=== PATIENT | male | born 1940 ===

== ENCOUNTER 2018-10-02 12:57 | Inpatient (IN) | payer MEDICARE ==
[2018-10-02 12:57] VITALS: BMI 25.4
--- NOTE | 2018-10-02 13:43 | C.PDOC ---
History Of Present Illness 78 year old male sent to ED by Dr. Carrasco for admission due to low magnesium level. Patient complains of abdominal discomfort and loosing weight. Dr. Carrasco sent him for a CT scan of the abdomen and found that he as a retro-peritoneal mass and a 5 cm AAA. Patient is to be re-evaluated here and seen by surgery. Patient denies fever, chills, nausea, vomiting, and diarrhea. Time Seen by Provider: 10/02/18 13:37 Chief Complaint (Nursing): Abnormal Labs History Per: Patient History/Exam Limitations: no limitations Current Symptoms Are (Timing): Still Present Past Medical History Reviewed: Historical Data, Nursing Documentation, Vital Signs Vital Signs: Last Vital Signs Temp 98.2 F 10/02/18 13:10 Pulse 69 10/02/18 13:10 Resp 16 10/02/18 13:10 BP 146/64 10/02/18 13:10 Pulse Ox 99 10/02/18 13:10 - Medical History PMH: Alzheimer's Disease, Cardia Arrhythmia, Diabetes, Fractures (HAND CASTED), Gastritis, HTN, Hypercholesterolemia Denies: Chronic Kidney Disease Surgical History: Denies: Pacemaker - [facility] Procedures CONTRAST AORTOGRAM (04/20/14) CORONAR ARTERIOGR-2 CATH (06/02/14) INJECT/INFUSE NEC (10/07/12) INSERTION OF ONE VASCULAR STENT (10/07/12) INSERTION OF TWO VASCULAR STENTS (06/02/14) INSRT OF DRUG-ELUTING CORON ARTERY STENTS(S) (06/02/14) INTRAVASCULAR IMAGING OF CORONARY VESSELS (10/07/12) INTRAVASCULAR PRESSURE MEASUREMENT OF CORONARY ARTERIES (06/02/14) LEFT HEART CARDIAC CATH (06/02/14) LT HEART ANGIOCARDIOGRAM (04/20/14) PERCUTANEOUS TRANSLUMINAL CORONARY ANGIOPLASTY [PTCA] (06/02/14) PROCEDURE ON SINGLE VESSEL (06/02/14) Family History: States: Unknown Family Hx - Social History Hx Tobacco Use: No Hx Alcohol Use: No Hx Substance Use: No - Immunization History Hx Tetanus Toxoid Vaccination: No Hx Influenza Vaccination: Yes Hx Pneumococcal Vaccination: No Review Of Systems Constitutional: Positive for: Weight loss. Negative for: Fever, Chills, Weakness Gastrointestinal: Positive for: Abdominal Pain. Negative for: Nausea, Vomiting, Diarrhea Neurological: Negative for: Weakness, Numbness, Dizziness Physical Exam - Physical Exam Appears: Non-toxic, No Acute Distress Skin: Normal Color, Warm, Dry Head: Atraumatic, Normacephalic Neck: Normal ROM, Supple Chest: Symmetrical, No Deformity Cardiovascular: Rhythm Regular, No Murmur Respiratory: No Accessory Muscle Use, No Rales, No Rhonchi, No Wheezing Gastrointestinal/Abdominal: Soft, No Tenderness Extremity: Capillary Refill (<2 seconds) Neurological/Psych: Oriented x3, Normal Speech, Normal Cognition ED Course And Treatment - Laboratory Results Result Diagrams: 10/02/18 14:34 10/02/18 14:34 O2 Sat by Pulse Oximetry: 99 (in RA) - Other Rad CXR X-Ray: Interpreted by Me, Viewed By Me Interpretation: Accession No. : [id number]. Patient Name / ID : IRIS RIVERS / [id number]. Exam Date : 10/02/2018 14:16:37 ( Approved ). Study Comment : Sex / Age : M / 78Y. Creator : Shirley Mcgee. Dictator : Shirley Mcgee. Variety Lathe Operator : Field Aide : Shirley Mcgee. Approver2 : Report Date : 10/02/2018 15:52:57. My Comment : . Date of service: 10/02/2018. PROCEDURE: CHEST RADIOGRAPH, 1 VIEW. HISTORY: abdominal mass. COMPARISON: 11/08/2015. FINDINGS: LUNGS: Clear. PLEURA: No pneumothorax or pleural fluid seen. CARDIOVASCULAR: No aortic atherosclerotic calcification present. Heart size within normal limits.No significant appearing pulmonary venous congestion. OSSEOUS STRUCTURES: Posterior left 7th rib deformity per compatible with a rib fracture probably subacute to chronic-apparent or definitely appreciated on the 2016 study. Thoracic spondylosis. Bilateral shoulder arthrosis. VISUALIZED UPPER ABDOMEN: Normal. OTHER FINDINGS: None. IMPRESSION: No acute cardiopulmonary pathology seen. Other findings as above. Progress Note: Labs ordered with troponin, CBC, lipase, lactic acid, and UA. EKG and CXR ordered for patient. Magnesium level found to be 1.5. Patient given Magnesium sulfate IV. Patient admitted to Tele. - Physician Consult Information Physician Contacted: Shell Carrasco Outcome Of Conversation: accepted to tele for observation Disposition - Disposition Disposition: HOSPITALIZED Disposition Time: 15:10 Condition: FAIR - Clinical Impression Clinical Impression: AAA (abdominal aortic aneurysm), Retroperitoneal mass, Hypomagnesemia Decision To Admit - Pt Status Changed To: Hospital Disposition Of: Observation - . Bed Request Type: Telemetry Admitting Physician: Shell Carrasco Patient Diagnosis: AAA (abdominal aortic aneurysm), Retroperitoneal mass, Hypomagnesemia
[2018-10-02 14:40] LABS: BASO # 0.1 K/uL (0.0-0.2); BASO % 0.9 % (0.0-2.0); EOS # 0.3 K/uL (0.0-0.7); EOS % 4.7 % (0.0-4.0); HEMOGLOBIN 12.4 g/dL (12.0-18.0); LYMPH # 1.1 K/uL (1.0-4.3); LYMPH % 16.9 % (20.0-40.0); MEAN CELL VOLUME 87.8 fL (80.0-94.0); MEAN CORPUSCULAR HEMOGLOBIN 29.8 pg (27.0-31.0); MEAN CORPUSCULAR HGB CONC 33.9 g/dL (33.0-37.0); MONO # 0.5 K/uL (0.0-0.8); MONO % 8.1 % (0.0-10.0); NEUT # 4.4 K/uL (1.8-7.0); NEUT % 69.4 % (50.0-75.0); RBC 4.18 Mil/uL (4.40-5.90); RED CELL DISTRIBUTION WIDTH 14.5 % (11.5-14.5); WHITE BLOOD COUNT 6.3 K/uL (4.8-10.8)
[2018-10-02 14:49] LABS: INR 1.1; PROTHROMBIN TIME 12.1 SECONDS (9.7-12.2)
[2018-10-02 14:52] LABS: PH,URINE 5.5 (5.0-8.0); URINE BILIRUBIN NEGATIVE (NEGATIVE); URINE BLOOD NEGATIVE (NEGATIVE); URINE CLARITY Clear (Clear); URINE COLOR YELLOW (YELLOW); URINE GLUCOSE (UA) 2+ mg/dL (Normal); URINE LEUKOCYTE ESTERASE NEGATIVE Leu/uL (Negative); URINE PROTEIN NEGATIVE (NEGATIVE); URINE UROBILINOGEN 0.2 mg/dL (0.2-1.0)
[2018-10-02 14:55] LABS: ALB/GLOB RATIO 1.5 (1.0-2.1); ALBUMIN 4.2 g/dL (3.5-5.0); ALT/SGPT 12 U/L (21-72); AMYLASE 54 U/L (30-110); AST/SGOT 19 U/L (17-59); BLOOD UREA NITROGEN 14 mg/dL (9-20); CALCIUM 9.4 mg/dl (8.6-10.4); GFR NON-AFRICAN AMERICAN 58; LIPASE 107 U/L (23-300)
[2018-10-02 15:05] LABS: CK-MB 0.94 ng/mL (0.0-3.38)
[2018-10-02] MEDS ORDERED: Magnesium Sulfate 1 gm in D5W 1 GM/100 ML BAG IV STA (15:10)
[2018-10-02 15:14] LABS: URINE HYALINE CAST 1 /lpf (0-2)
[2018-10-02] MEDS ORDERED: Magnesium Sulfate 1 gm in D5W 1 GM/100 ML BAG IVPB ONE (15:51)
--- NOTE | 2018-10-02 15:56 | RAD ---
Date of service: 10/02/2018 PROCEDURE: CHEST RADIOGRAPH, 1 VIEW HISTORY: abdominal mass COMPARISON: 11/08/2015 FINDINGS: LUNGS: Clear. PLEURA: No pneumothorax or pleural fluid seen. CARDIOVASCULAR: No aortic atherosclerotic calcification present. Heart size within normal limits.No significant appearing pulmonary venous congestion. OSSEOUS STRUCTURES: Posterior left 7th rib deformity per compatible with a rib fracture probably subacute to chronic-apparent or definitely appreciated on the 2016 study. Thoracic spondylosis. Bilateral shoulder arthrosis. VISUALIZED UPPER ABDOMEN: Normal. OTHER FINDINGS: None. IMPRESSION: No acute cardiopulmonary pathology seen. Other findings as above.
--- NOTE | 2018-10-03 01:34 | CP.PCM.CON ---
History of Present Illness - History of Present Illness History of Present Illness: General Surgery Consult note for Dr. Lopez (Dr. Delcid covering) 78M with PMHx of HTN, DM, HLD, AAA, BPH admitted to hospital for hypomagnesemia. General surgery consulted for evaluation of AAA and abdominal mass. As per medical records patient had outpatient CT Abd&Pel which demonstrated AAA and a retroperitoneal mass. At time of examination patient denied fever/chills, chest pain/SOB, nausea/vomiting/diarrhea, abdominal pain, dysuria. PMHx: HTN, DM, HLD, AAA, BPH PSHx: Right inguinal hernia repair, Cardiac stent x4 FMHx: noncontributory Allergies: NKDA Review of Systems - Review of Systems All systems: reviewed and no additional remarkable complaints except Review of Systems: except as stated in HPI Past Patient History - Past Medical History & Family History Past Medical History?: Yes - Past Social History Smoking Status: Never Smoked - CARDIAC Hx Cardia Arrhythmia: Yes Hx Hypercholesterolemia: Yes Hx Hypertension: Yes Hx Pacemaker: No - PULMONARY Hx Respiratory Disorders: No - NEUROLOGICAL Hx Alzheimer's Disease: Yes - HEENT Hx HEENT Problems: Yes Hx Cataracts: Yes (CATARACT REMOVAL 2 YRS AGO) - RENAL Hx Chronic Kidney Disease: No - ENDOCRINE/METABOLIC Hx Diabetes Mellitus Type 2: Yes - HEMATOLOGICAL/ONCOLOGICAL Hx Blood Transfusions: No Hx Blood Transfusion Reaction: No - INTEGUMENTARY Hx Dermatological Problems: No - MUSCULOSKELETAL/RHEUMATOLOGICAL Hx Fractures: Yes (HAND CASTED) - GASTROINTESTINAL Hx Gastritis: Yes - GENITOURINARY/GYNECOLOGICAL Hx Genitourinary Disorders: Yes Hx Prostate Problems: Yes - PSYCHIATRIC Hx Substance Use: No - SURGICAL HISTORY Hx Surgeries: Yes Hx Herniorrhaphy: Yes Other/Comment: cardiac stents x4 - ANESTHESIA Hx Anesthesia: Yes Hx Anesthesia Reactions: No Hx Malignant Hyperthermia: No Meds Allergies/Adverse Reactions: Allergies Allergy/AdvReac Type Severity Reaction Status Date / Time No Known Allergies Allergy Verified 10/02/18 13:13 - Medications Medications: Current Medications Influenza Virus Vaccine (Flucelvax Quad [id number] Syr) 60 mcg IM .ONCE ONE Stop: 10/04/18 10:01 Pneumococcal Polyvalent Vaccine (Pneumovax 23 Vaccine) 0.5 ml IM .ONCE ONE Stop: 10/04/18 10:01 Physical Exam - Constitutional Appears: No Acute Distress - Head Exam Head Exam: NORMOCEPHALIC - Eye Exam Eye Exam: EOMI, Normal appearance - ENT Exam ENT Exam: Mucous Membranes Moist - Respiratory Exam Respiratory Exam: NORMAL BREATHING PATTERN - Cardiovascular Exam Cardiovascular Exam: +S1, +S2 - GI/Abdominal Exam GI & Abdominal Exam: Soft. absent: Distended, Guarding, Hernia, Rigid, Tenderness Results - Vital Signs Recent Vital Signs: Last Vital Signs Temp 98.0 F 10/02/18 23:19 Pulse 60 10/02/18 23:19 Resp 18 10/02/18 23:19 BP 136/64 10/02/18 23:19 Pulse Ox 96 10/02/18 23:19 - Labs Result Diagrams: 10/02/18 14:34 10/02/18 14:34 Labs: Laboratory Results - last 24 hr 10/02/18 10/02/18 10/02/18 14:34 14:34 14:34 WBC 6.3 RBC 4.18 L Hgb 12.4 Hct 36.7 MCV 87.8 MCH 29.8 MCHC 33.9 RDW 14.5 Plt Count 149 D MPV 9.0 Neut % (Auto) 69.4 Lymph % (Auto) 16.9 L [place] % (Auto) 8.1 Eos % (Auto) 4.7 H Baso % (Auto) 0.9 Neut # (Auto) 4.4 Lymph # (Auto) 1.1 [place] # (Auto) 0.5 Eos # (Auto) 0.3 Baso # (Auto) 0.1 PT 12.1 INR 1.1 APTT 29 Sodium Potassium Chloride Carbon Dioxide Anion Gap BUN Creatinine Est GFR ( Amer) Est GFR (Non-Af Amer) POC Glucose (mg/dL) Random Glucose Lactic Acid Calcium Magnesium Total Bilirubin AST ALT Alkaline Phosphatase Total Creatine Kinase CK-MB (Mass) Troponin I Total Protein Albumin Globulin Albumin/Globulin Ratio Amylase Lipase Urine Color Yellow Urine Clarity Clear Urine pH 5.5 Ur Specific [place] > 1.030 H Urine Protein Negative Urine Glucose (UA) 2+ H Urine Ketones Negative Urine Blood Negative Urine Nitrate Negative Urine Bilirubin Negative Urine Urobilinogen 0.2 Ur Leukocyte Esterase Negative Urine WBC (Auto) 1 Urine RBC (Auto) 1 Hyaline Casts 1 10/02/18 10/02/18 10/02/18 14:34 14:36 21:49 WBC RBC Hgb Hct MCV MCH MCHC RDW Plt Count MPV Neut % (Auto) Lymph % (Auto) [place] % (Auto) Eos % (Auto) Baso % (Auto) Neut # (Auto) Lymph # (Auto) [place] # (Auto) Eos # (Auto) Baso # (Auto) PT INR APTT Sodium 138 Potassium 4.3 Chloride 101 Carbon Dioxide 29 Anion Gap 12 BUN 14 Creatinine 1.2 Est GFR ( Amer) > 60 Est GFR (Non-Af Amer) 58 POC Glucose (mg/dL) 214 H Random Glucose 217 H D Lactic Acid 1.9 Calcium 9.4 Magnesium 1.5 L Total Bilirubin 0.5 AST 19 ALT 12 L D Alkaline Phosphatase 75 Total Creatine Kinase 101 CK-MB (Mass) 0.94 Troponin I < 0.0120 Total Protein 7.0 Albumin 4.2 Globulin 2.7 Albumin/Globulin Ratio 1.5 Amylase 54 Lipase 107 Urine Color Urine Clarity Urine pH Ur Specific [place] Urine Protein Urine Glucose (UA) Urine Ketones Urine Blood Urine Nitrate Urine Bilirubin Urine Urobilinogen Ur Leukocyte Esterase Urine WBC (Auto) Urine RBC (Auto) Hyaline Casts Assessment & Plan - Assessment and Plan (Free Text) Assessment: 78M with hypomagnesemia and history of AAA Plan: -Replete electrolytes prn -CT Abd & Pel w/ IV and PO contrast to evaluate AAA and retroperitoneal mass -Further recommendations pending imaging -Will follow -Further recs per Dr. Delcid covering for Dr. John Lockhart PGY3
--- NOTE | 2018-10-03 06:23 | CP.PCM.HP ---
History of Present Illness - History of Present Illness History of Present Illness: 78M with PMHx of HTN, DM, HLD, AAA, BPH admitted to hospital for hypomagnesemia. General surgery consulted for evaluation of AAA and abdominal mass. As per medical records patient had outpatient CT Abd&Pel which demonstrated AAA and a retroperitoneal mass. At time of examination patient denied fever/chills, chest pain/SOB, nausea/vomiting/diarrhea, abdominal pain, dysuria. PMHx: HTN, DM, HLD, AAA, BPH PSHx: Right inguinal hernia repair, Cardiac stent x4 FMHx: noncontributory Allergies: NKDA Past Patient History - Past Medical History & Family History Past Medical History?: Yes - Past Social History Smoking Status: Never Smoked - CARDIAC Hx Cardia Arrhythmia: Yes Hx Hypercholesterolemia: Yes Hx Hypertension: Yes Hx Pacemaker: No - PULMONARY Hx Respiratory Disorders: No - NEUROLOGICAL Hx Alzheimer's Disease: Yes - HEENT Hx HEENT Problems: Yes Hx Cataracts: Yes (CATARACT REMOVAL 2 YRS AGO) - RENAL Hx Chronic Kidney Disease: No - ENDOCRINE/METABOLIC Hx Diabetes Mellitus Type 2: Yes - HEMATOLOGICAL/ONCOLOGICAL Hx Blood Transfusions: No Hx Blood Transfusion Reaction: No - INTEGUMENTARY Hx Dermatological Problems: No - MUSCULOSKELETAL/RHEUMATOLOGICAL Hx Fractures: Yes (HAND CASTED) - GASTROINTESTINAL Hx Gastritis: Yes - GENITOURINARY/GYNECOLOGICAL Hx Genitourinary Disorders: Yes Hx Prostate Problems: Yes - PSYCHIATRIC Hx Substance Use: No - SURGICAL HISTORY Hx Surgeries: Yes Hx Herniorrhaphy: Yes Other/Comment: cardiac stents x4 - ANESTHESIA Hx Anesthesia: Yes Hx Anesthesia Reactions: No Hx Malignant Hyperthermia: No Meds Allergies/Adverse Reactions: Allergies Allergy/AdvReac Type Severity Reaction Status Date / Time No Known Allergies Allergy Verified 10/02/18 13:13 Results - Vital Signs Recent Vital Signs: Last Vital Signs Temp 98.0 F 10/02/18 23:19 Pulse 59 L 10/03/18 01:58 Resp 18 10/02/18 23:19 BP 136/64 10/02/18 23:19 Pulse Ox 96 10/03/18 04:32 - Labs Result Diagrams: 10/02/18 14:34 10/02/18 14:34 Labs: Laboratory Results - last 24 hr 10/02/18 10/02/18 10/02/18 14:34 14:34 14:34 WBC 6.3 RBC 4.18 L Hgb 12.4 Hct 36.7 MCV 87.8 MCH 29.8 MCHC 33.9 RDW 14.5 Plt Count 149 D MPV 9.0 Neut % (Auto) 69.4 Lymph % (Auto) 16.9 L [place] % (Auto) 8.1 Eos % (Auto) 4.7 H Baso % (Auto) 0.9 Neut # (Auto) 4.4 Lymph # (Auto) 1.1 [place] # (Auto) 0.5 Eos # (Auto) 0.3 Baso # (Auto) 0.1 PT 12.1 INR 1.1 APTT 29 Sodium Potassium Chloride Carbon Dioxide Anion Gap BUN Creatinine Est GFR ( Amer) Est GFR (Non-Af Amer) POC Glucose (mg/dL) Random Glucose Lactic Acid Calcium Magnesium Total Bilirubin AST ALT Alkaline Phosphatase Total Creatine Kinase CK-MB (Mass) Troponin I Total Protein Albumin Globulin Albumin/Globulin Ratio Amylase Lipase Urine Color Yellow Urine Clarity Clear Urine pH 5.5 Ur Specific [place] > 1.030 H Urine Protein Negative Urine Glucose (UA) 2+ H Urine Ketones Negative Urine Blood Negative Urine Nitrate Negative Urine Bilirubin Negative Urine Urobilinogen 0.2 Ur Leukocyte Esterase Negative Urine WBC (Auto) 1 Urine RBC (Auto) 1 Hyaline Casts 1 10/02/18 10/02/18 10/02/18 14:34 14:36 21:49 WBC RBC Hgb Hct MCV MCH MCHC RDW Plt Count MPV Neut % (Auto) Lymph % (Auto) [place] % (Auto) Eos % (Auto) Baso % (Auto) Neut # (Auto) Lymph # (Auto) [place] # (Auto) Eos # (Auto) Baso # (Auto) PT INR APTT Sodium 138 Potassium 4.3 Chloride 101 Carbon Dioxide 29 Anion Gap 12 BUN 14 Creatinine 1.2 Est GFR ( Amer) > 60 Est GFR (Non-Af Amer) 58 POC Glucose (mg/dL) 214 H Random Glucose 217 H D Lactic Acid 1.9 Calcium 9.4 Magnesium 1.5 L Total Bilirubin 0.5 AST 19 ALT 12 L D Alkaline Phosphatase 75 Total Creatine Kinase 101 CK-MB (Mass) 0.94 Troponin I < 0.0120 Total Protein 7.0 Albumin 4.2 Globulin 2.7 Albumin/Globulin Ratio 1.5 Amylase 54 Lipase 107 Urine Color Urine Clarity Urine pH Ur Specific [place] Urine Protein Urine Glucose (UA) Urine Ketones Urine Blood Urine Nitrate Urine Bilirubin Urine Urobilinogen Ur Leukocyte Esterase Urine WBC (Auto) Urine RBC (Auto) Hyaline Casts
[2018-10-03] MEDS: (Novolog) Insulin Aspart, Recombinant 100 u/ml 10 ml vial SC SCH ×4 (07:45→22:16)
[2018-10-03] MEDS ORDERED: Dextrose 50% SYRINGE Inj (50 ml) IV PRN (07:53)
[2018-10-03] MEDS ORDERED: Glucagon Recombinant 1 mg Inj IM PRN (07:53)
--- NOTE | 2018-10-03 09:45 | US ---
Date of service: 10/03/2018 HISTORY: retroperitoneal mass COMPARISON: None. TECHNIQUE: Grayscale imaging was performed. FINDINGS: LIVER: Measures 15.4 cm. There is diffuse increased echogenicity of the liver parenchyma. No mass. No intrahepatic bile duct dilatation. GALLBLADDER: There are no gallstones, wall thickening or pericholecystic fluid. The sonographic Mcmillan's sign is negative. COMMON BILE DUCT: Measures 7.3 mm. No stones. No dilatation. PANCREAS: Unremarkable as visualized. No mass. No ductal dilatation. RIGHT KIDNEY: Measures 11.5cm. Normal echogenicity. No calculus, mass, or hydronephrosis. LEFT KIDNEY: Measures 11.1cm. Normal echogenicity. No calculus, mass, or hydronephrosis. SPLEEN: Normal in size and contour. No mass. AORTA: No aneurysmal dilatation. IVC: Unremarkable. OTHER FINDINGS: None. IMPRESSION: Fatty liver. No cholelithiasis. Mild diffuse dilatation of the common bile duct without sonographic evidence for choledocholithiasis. Correlation with CT/MRI/MRCP of the abdomen without and with intravenous contrast is recommended for further evaluation and to exclude distal obstruction.
[2018-10-03] MEDS ORDERED: Iohexol 240 (50 ml) PO ONE (11:00)
[2018-10-03 12:08] LABS: BLOOD UREA NITROGEN 15 mg/dL (9-20); CALCIUM 9.9 mg/dl (8.6-10.4); GFR NON-AFRICAN AMERICAN > 60
--- NOTE | 2018-10-03 12:46 | US ---
Date of service: 10/03/2018 PROCEDURE: Ultrasound abdominal aorta HISTORY: AAA abdominal aneurysm COMPARISON: 01/06/2016 grayscale and duplex Doppler evaluation of the aorta. Summary of findings on the comparison examination: Maximum aortic artery diameter 4.78 at the level of the renal arteries. TECHNIQUE: Standard protocol for this study/examination. FINDINGS: Proximal aorta: 1.2 x 1.5 cm. Mid aorta: 4.2 x 4.6 cm. Luminal diameter 2.5 x 4.1 cm. Distal aorta: 1.7 x 2.1 cm Unremarkable IVC is visualized. IMPRESSION: Stable abdominal aortic aneurysm.
--- NOTE | 2018-10-03 13:17 | CP.PCM.CON ---
History of Present Illness - History of Present Illness History of Present Illness: This is a 78 year old man with an abdominal mass. Patient has a history of abdominal aortic aneurysm. A CT scan was done recently which showed a retroperitoneal mass. Ultrasound done at showed dilatation of the CBD but no obvious mass. Patient denies having nausea, vomiting, heartburn, difficulty swallowing, diarrhea, rectal bleeding. He has chronic constipation, firm bowel movements every three days. He also reports losing 60 pounds over the past three years. Colonoscopy was performed by Dr. Whitehead 12/21/2015 and showed internal hemorrhoids and a hyperplastic polyp. EGD showed gastritis secondary to H pylori infection. Review of Systems - Constitutional Constitutional: Weight Loss. absent: Chills, Fever, Weakness - Gastrointestinal Gastrointestinal: Constipation. absent: Diarrhea, Dysphagia, Heartburn, Jacob tochezia, Nausea, Vomiting - Neurological Neurological: Syncope. absent: Dizziness, Numbness, Weakness Past Patient History - Past Medical History & Family History Past Medical History?: Yes - Past Social History Smoking Status: Never Smoked - CARDIAC Hx Cardiac Disorders: Yes (CAD, S/P angioplasty, stents) Hx Cardia Arrhythmia: Yes Hx Hypercholesterolemia: Yes Hx Hypertension: Yes Hx Pacemaker: No - PULMONARY Hx Respiratory Disorders: No - NEUROLOGICAL Hx Alzheimer's Disease: Yes - HEENT Hx HEENT Problems: Yes Hx Cataracts: Yes (CATARACT REMOVAL 2 YRS AGO) - RENAL Hx Chronic Kidney Disease: No - ENDOCRINE/METABOLIC Hx Diabetes Mellitus Type 2: Yes - HEMATOLOGICAL/ONCOLOGICAL Hx Blood Transfusions: No Hx Blood Transfusion Reaction: No - INTEGUMENTARY Hx Dermatological Problems: No - MUSCULOSKELETAL/RHEUMATOLOGICAL Hx Fractures: Yes (HAND CASTED) - GASTROINTESTINAL Hx Gastritis: Yes - GENITOURINARY/GYNECOLOGICAL Hx Genitourinary Disorders: Yes Hx Prostate Problems: Yes - PSYCHIATRIC Hx Substance Use: No - SURGICAL HISTORY Hx Surgeries: Yes Hx Herniorrhaphy: Yes Other/Comment: cardiac stents x4 - ANESTHESIA Hx Anesthesia: Yes Hx Anesthesia Reactions: No Hx Malignant Hyperthermia: No Meds Allergies/Adverse Reactions: Allergies Allergy/AdvReac Type Severity Reaction Status Date / Time No Known Allergies Allergy Verified 10/02/18 13:13 - Medications Medications: Current Medications Dextrose (Dextrose 50% Inj) 0 ml IV STAT PRN; Protocol PRN Reason: Hypoglycemia Protocol Dextrose (Glutose 15) 0 gm PO ONCE PRN; Protocol PRN Reason: Hypoglycemia Protocol Finasteride (Proscar) 5 mg PO DAILY [facility] Last Admin: 10/03/18 09:57 Dose: 5 mg Glucagon (Glucagen Diagnostic Kit) 0 mg IM STAT PRN; Protocol PRN Reason: Hypoglycemia Protocol Dextrose (Dextrose 5% In Water 1000 Ml) 1,000 mls @ 0 mls/hr IV .Q0M PRN; Protocol PRN Reason: Hypoglycemia Protocol Insulin Aspart (Novolog) 0 unit SC ACHS [facility]; Protocol Last Admin: 10/03/18 12:58 Dose: 3 units Rosuvastatin Calcium (Crestor) 10 mg PO HS [facility] Tamsulosin HCl (Flomax) 0.4 mg PO DAILY [facility] Last Admin: 10/03/18 09:57 Dose: 0.4 mg Physical Exam - Constitutional Appears: No Acute Distress - Head Exam Head Exam: ATRAUMATIC, NORMOCEPHALIC - Eye Exam Eye Exam: EOMI, PERRL - Neck Exam Neck exam: Negative for: Lymphadenopathy, Thyromegaly - Respiratory Exam Respiratory Exam: NORMAL BREATHING PATTERN. absent: Rales, Rhonchi, Wheezes - Cardiovascular Exam Cardiovascular Exam: REGULAR RHYTHM, +S1, +S2. absent: Gallop, Rubs, Systolic Murmur - GI/Abdominal Exam GI & Abdominal Exam: Normal Bowel Sounds, Soft. absent: Mass, Organomegaly, Tenderness - Rectal Exam Rectal Exam: Deferred - Extremities Exam Extremities exam: Negative for: calf tenderness, pedal edema Results - Vital Signs Recent Vital Signs: Last Vital Signs Temp 98.0 F 10/02/18 23:19 Pulse 59 L 10/03/18 01:58 Resp 18 10/02/18 23:19 BP 136/64 10/02/18 23:19 Pulse Ox 96 10/03/18 04:32 - Labs Result Diagrams: 10/02/18 14:34 10/03/18 11:41 Labs: Laboratory Results - last 24 hr 10/02/18 10/02/18 10/02/18 14:34 14:34 14:34 WBC 6.3 RBC 4.18 L Hgb 12.4 Hct 36.7 MCV 87.8 MCH 29.8 MCHC 33.9 RDW 14.5 Plt Count 149 D MPV 9.0 Neut % (Auto) 69.4 Lymph % (Auto) 16.9 L [place] % (Auto) 8.1 Eos % (Auto) 4.7 H Baso % (Auto) 0.9 Neut # (Auto) 4.4 Lymph # (Auto) 1.1 [place] # (Auto) 0.5 Eos # (Auto) 0.3 Baso # (Auto) 0.1 PT 12.1 INR 1.1 APTT 29 Sodium Potassium Chloride Carbon Dioxide Anion Gap BUN Creatinine Est GFR ( Amer) Est GFR (Non-Af Amer) POC Glucose (mg/dL) Random Glucose Lactic Acid Calcium Magnesium Total Bilirubin AST ALT Alkaline Phosphatase Total Creatine Kinase CK-MB (Mass) Troponin I Total Protein Albumin Globulin Albumin/Globulin Ratio Amylase Lipase Urine Color Yellow Urine Clarity Clear Urine pH 5.5 Ur Specific [place] > 1.030 H Urine Protein Negative Urine Glucose (UA) 2+ H Urine Ketones Negative Urine Blood Negative Urine Nitrate Negative Urine Bilirubin Negative Urine Urobilinogen 0.2 Ur Leukocyte Esterase Negative Urine WBC (Auto) 1 Urine RBC (Auto) 1 Hyaline Casts 1 10/02/18 10/02/18 10/02/18 14:34 14:36 21:49 WBC RBC Hgb Hct MCV MCH MCHC RDW Plt Count MPV Neut % (Auto) Lymph % (Auto) [place] % (Auto) Eos % (Auto) Baso % (Auto) Neut # (Auto) Lymph # (Auto) [place] # (Auto) Eos # (Auto) Baso # (Auto) PT INR APTT Sodium 138 Potassium 4.3 Chloride 101 Carbon Dioxide 29 Anion Gap 12 BUN 14 Creatinine 1.2 Est GFR ( Amer) > 60 Est GFR (Non-Af Amer) 58 POC Glucose (mg/dL) 214 H Random Glucose 217 H D Lactic Acid 1.9 Calcium 9.4 Magnesium 1.5 L Total Bilirubin 0.5 AST 19 ALT 12 L D Alkaline Phosphatase 75 Total Creatine Kinase 101 CK-MB (Mass) 0.94 Troponin I < 0.0120 Total Protein 7.0 Albumin 4.2 Globulin 2.7 Albumin/Globulin Ratio 1.5 Amylase 54 Lipase 107 Urine Color Urine Clarity Urine pH Ur Specific [place] Urine Protein Urine Glucose (UA) Urine Ketones Urine Blood Urine Nitrate Urine Bilirubin Urine Urobilinogen Ur Leukocyte Esterase Urine WBC (Auto) Urine RBC (Auto) Hyaline Casts 10/03/18 10/03/18 11:41 12:04 WBC RBC Hgb Hct MCV MCH MCHC RDW Plt Count MPV Neut % (Auto) Lymph % (Auto) [place] % (Auto) Eos % (Auto) Baso % (Auto) Neut # (Auto) Lymph # (Auto) [place] # (Auto) Eos # (Auto) Baso # (Auto) PT INR APTT Sodium 137 Potassium 4.3 Chloride 101 Carbon Dioxide 31 H Anion Gap 10 BUN 15 Creatinine 1.0 Est GFR ( Amer) > 60 Est GFR (Non-Af Amer) > 60 POC Glucose (mg/dL) 241 H Random Glucose 268 H D Lactic Acid Calcium 9.9 Magnesium 1.7 Total Bilirubin AST ALT Alkaline Phosphatase Total Creatine Kinase CK-MB (Mass) Troponin I Total Protein Albumin Globulin Albumin/Globulin Ratio Amylase Lipase Urine Color Urine Clarity Urine pH Ur Specific [place] Urine Protein Urine Glucose (UA) Urine Ketones Urine Blood Urine Nitrate Urine Bilirubin Urine Urobilinogen Ur Leukocyte Esterase Urine WBC (Auto) Urine RBC (Auto) Hyaline Casts Assessment & Plan (1) Retroperitoneal mass Assessment and Plan: 78 year old man with diagnosis of a retroperitoneal mass diagnosed on outside CT scan. Agree with plans for repeat scan and surgery consult. Patient is up to date with colon cancer screening. Will check stool OB and H pylori. Status: Acute
[2018-10-03] MEDS ORDERED: Iodixanol 320 MG/ML 100 ML BOTTLE IV ONE (15:30)
--- NOTE | 2018-10-03 18:12 | CT ---
Date of service: 10/03/2018 PROCEDURE: CT Abdomen and Pelvis with contrast HISTORY: AAA, abd mass COMPARISON: 10/31/2015 CT abdomen and pelvis. 10/03/2018 abdominal ultrasound. TECHNIQUE: Intravenous contrast dose: 100 cc Visipaque 320. Radiation dose: Total exam DLP = 1107.36 mGy-cm. This CT exam was performed using one or more of the following dose reduction techniques: Automated exposure control, adjustment of the mA and/or kV according to patient size, and/or use of iterative reconstruction technique. FINDINGS: LOWER THORAX: Unremarkable. LIVER: Unremarkable. No gross lesion or ductal dilatation. GALLBLADDER AND BILE DUCTS: Unremarkable. PANCREAS: Unremarkable. No gross lesion or ductal dilatation. SPLEEN: Unremarkable. ADRENALS: Unremarkable. No mass. KIDNEYS AND URETERS: Unremarkable. No hydronephrosis. No solid mass. VASCULATURE: Renal abdominal aorta measures 4.8 x 5.1 cm. The aneurysm 6.6 cm in length. The lumen measures 2.7 x 2.8 cm. There is ulcerating anterior plaque with contrast extending anteriorly through the thrombus to the calcified anterior wall of the aneurysm. This represents a new finding compared to the prior study. The finding is best visualized on sagittal series 602/image 101. BOWEL: Diverticulosis without an acute inflammatory component or other associated pathologic process. APPENDIX: A normal appendix is visualized in it's entirety. PERITONEUM: Unremarkable. No free fluid. No free air. LYMPH NODES: Enlarged periaortic and pericaval retroperitoneal lymph nodes not seen previously. The preponderance of lymph nodes range from 5-15 mm. BLADDER: Mildly thickened bladder wall may reflect a component of cystitis. REPRODUCTIVE: Unremarkable. BONES: No acute fracture. OTHER FINDINGS: Right hemipelvis soft tissue mass 5.3 x 7.6 cm. The mass is draped over both external and internal iliac arteries. IMPRESSION: Stable infrarenal abdominal aortic aneurysm with respect to size in overall appearance. There is contrast communicating with the anterior aortic wall likely ulceration through soft plaque. Mass in the right hemipelvis likely adenopathy. Additional new lymph nodes identified in periaortic and pericaval retroperitoneal lymph node chains.
[2018-10-04] MEDS: (Novolog) Insulin Aspart, Recombinant 100 u/ml 10 ml vial SC SCH ×4 (07:51→21:50)
[2018-10-04] MEDS ORDERED: Influenza Vaccine 60 mcg/0.5 mL SYR (4YR UP) IM ONE (10:00)
[2018-10-04] MEDS ORDERED: Pneumococcal 23-Valent Vaccine IM ONE (10:00)
--- NOTE | 2018-10-04 15:06 | CP.PCM.CON ---
History of Present Illness - History of Present Illness History of Present Illness: I was asked to see patient by Dr Carrasco. patient seen 10/04/18 [id number] Patient is a 78 year old male with HTN, CAD, cardiomyopathy AAA who presents with weakness, constipation. Patient has noted decreased po intake and had a syncopal event one week ago. he did not seek medical attention. The patient saw Dr Juares who ordered a CT scan. The patient was found to have a pelvic mass. Adenopathy is noted. abdominal ultrasound was performed to evaluate AAA. Review of Systems - Constitutional Constitutional: Weight Loss - EENT Eyes: absent: As Per HPI, Blind Spots, Blurred Vision, Change in Vision, Decreased Night Vision, Diplopia, Discharge, Dry Eye, Exophthalmos, Floaters, Irritation, Itchy Eyes, Loss of Peripheral Vision, Pain, Photophobia, Requires Corrective Lenses, Sees Flashes, Spots in Vision, Tunnel Vision, Other Visual Disturbances, Loss of Vision, Other Ears: absent: As Per HPI, Decreased Hearing, Ear Discharge, Ear Pain, Tinnitus, Abnormal Hearing, Disequilibrium, Dizziness, Other Nose/Mouth/Throat: absent: As Per HPI, Epistaxis, Nasal Congestion, Nasal Di scharge, Nasal Obstruction, Nasal Trauma, Nose Pain, Post Nasal Drip, Sinus Pain, Sinus Pressure, Bleeding Gums, Change in Voice, Dental Pain, Dry Mouth, Dysphagia, Halitosis, Hoarsness, Lip Swelling, Mouth Lesions, Mouth Pain, Odynophagia, Sore Throat, Throat Swelling, Tongue Swelling, Facial Pain, Neck Pain, Neck Mass, Other - Cardiovascular Cardiovascular: absent: As Per HPI, Acrocyanosis, Chest Pain, Chest Pain at Rest, Chest Pain with Activity, Claudication, Diaphoresis, Dyspnea, Dyspnea on Exertion, Edema, Irregular Heart Rhythm, Pain Radiating to Arm/Neck/Jaw, Leg Edema, Leg Ulcers, Lightheadedness, Orthopnea, Palpitations, Paroxysmal Nocturnal Dyspnea, Pedal Edema, Radiating Pain, Rapid Heart Rate, Slow Heart Rate, Syncope, Other - Respiratory Respiratory: absent: As Per HPI, Cough, Dyspnea, Hemoptysis, Dyspnea on Exertion, Wheezing, Snoring, Stridor, Pain on Inspiration, Chest Congestion, Excessive Mucous Production, Change in Mucous Color, Pain with Coughing, Other - Gastrointestinal Gastrointestinal: Change in Bowel Habits, Nausea - Genitourinary Genitourinary: absent: As Per HPI, Change in Urinary Stream, Difficulty Urinating, Dysuria, Flank Pain, Hematuria, Pyuria, Nocturia, Urinary Incontinence, Urinary Frequency, Urinary Hesitance, Urinary Urgency, Voiding Freq/Small Amts, Freq UTI, Hx Renal/Bladder Calculi, Hx /Renal Surgery, Bladder Distension, Other - Integumentary Integumentary: absent: As Per HPI, Acne, Alopecia, Bleeding Lesions, Change in Hair, Change in Nails, Change in Pigmentation, Changing Lesions, Dry Skin, Erythema, Furuncle, Hirsutism, Lesions, New Lesions, Non-Healing Lesions, Photosensitivity, Pruritus, Rash, Skin Pain, Skin Ulcer, Sores, Striae, Swelling, Unusual Bruising, Wounds, Jaundice, Other - Neurological Neurological: absent: As Per HPI, Abnormal Gait, Abnormal Hearing, Abnormal Movements, Abnormal Speech, Behavioral Changes, Burning Sensations, Confusion, Convulsions, Disequilibrium, Dizziness, Numbness, Focal Weakness, Frequent Falls, Headaches, Lack of Coordination, Loss of Vision, Memory Loss, Paresthesias, Radicular Pain, Restless Legs, Sensory Deficit, Syncope, Tingling, Tremor, Vertigo, Weakness, Other Visual Disturbances, Other - Psychiatric Psychiatric: absent: As Per HPI, Abnormal Sleep Pattern, Anhedonia, Anxiety, Auditory Hallucinations, Behavioral Changes, Change in Appetite, Change in Libido, Confusion, Depression, Difficulty Concentrating, Hallucinations, Homicidal Ideation, Hopelessness, Irritability, Memory Loss, Mood Swings, Panic Attacks, Paranoia, Suicidal Ideation, Visual Hallucinations, Tactile Hallucinations, Other - Endocrine Endocrine: absent: As Per HPI, Change in Body Appearance, Change in Libido, Cold Intolorance, Deepening of Voice, Excessive Sweating, Fatigue, Flushing, Heat Intolorance, Increase in Ring/Shoe/Hat Size, Palpitations, Polydipsia, Polyphagia, Polyuria, Other - Hematologic/Lymphatic Hematologic: absent: As Per HPI, Easy Bleeding, Easy Bruising, Lymphadenopathy, Other Past Patient History - Past Medical History & Family History Past Medical History?: Yes - Past Social History Smoking Status: Never Smoked - CARDIAC Hx Hypercholesterolemia: Yes Hx Hypertension: Yes - PULMONARY Hx Respiratory Disorders: No - NEUROLOGICAL Hx Alzheimer's Disease: Yes - HEENT Hx HEENT Problems: Yes Hx Cataracts: Yes (CATARACT REMOVAL 2 YRS AGO) - RENAL Hx Chronic Kidney Disease: No - ENDOCRINE/METABOLIC Hx Diabetes Mellitus Type 2: Yes - HEMATOLOGICAL/ONCOLOGICAL Hx Blood Transfusions: No Hx Blood Transfusion Reaction: No - INTEGUMENTARY Hx Dermatological Problems: No - MUSCULOSKELETAL/RHEUMATOLOGICAL Hx Fractures: Yes (HAND CASTED) - GASTROINTESTINAL Hx Gastritis: Yes - GENITOURINARY/GYNECOLOGICAL Hx Genitourinary Disorders: Yes Hx Prostate Problems: Yes - PSYCHIATRIC Hx Substance Use: No - SURGICAL HISTORY Hx Surgeries: Yes Hx Herniorrhaphy: Yes Other/Comment: cardiac stents x4 - ANESTHESIA Hx Anesthesia: Yes Hx Anesthesia Reactions: No Hx Malignant Hyperthermia: No Meds Allergies/Adverse Reactions: Allergies Allergy/AdvReac Type Severity Reaction Status Date / Time No Known Allergies Allergy Verified 10/02/18 13:13 - Medications Medications: Current Medications Dextrose (Dextrose 50% Inj) 0 ml IV STAT PRN; Protocol PRN Reason: Hypoglycemia Protocol Dextrose (Glutose 15) 0 gm PO ONCE PRN; Protocol PRN Reason: Hypoglycemia Protocol Finasteride (Proscar) 5 mg PO DAILY [facility] Last Admin: 10/04/18 09:23 Dose: 5 mg Glucagon (Glucagen Diagnostic Kit) 0 mg IM STAT PRN; Protocol PRN Reason: Hypoglycemia Protocol Dextrose (Dextrose 5% In Water 1000 Ml) 1,000 mls @ 0 mls/hr IV .Q0M PRN; Protocol PRN Reason: Hypoglycemia Protocol Insulin Aspart (Novolog) 0 unit SC [facility]; Protocol Last Admin: 10/04/18 12:25 Dose: 2 units Rosuvastatin Calcium (Crestor) 10 mg PO [facility] Last Admin: 10/03/18 22:17 Dose: 10 mg Tamsulosin HCl (Flomax) 0.4 mg PO DAILY [facility] Last Admin: 10/04/18 09:24 Dose: 0.4 mg Physical Exam - Constitutional Appears: Non-toxic - Head Exam Head Exam: NORMAL INSPECTION - Eye Exam Eye Exam: Normal appearance - ENT Exam ENT Exam: Mucous Membranes Moist - Neck Exam Neck exam: Positive for: Full Rom - Respiratory Exam Respiratory Exam: NORMAL BREATHING PATTERN - Cardiovascular Exam Cardiovascular Exam: REGULAR RHYTHM - GI/Abdominal Exam GI & Abdominal Exam: Normal Bowel Sounds - Rectal Exam Rectal Exam: Deferred - Extremities Exam Extremities exam: Negative for: pedal edema - Back Exam Back exam: NORMAL INSPECTION - Neurological Exam Neurological exam: Alert, Oriented x3 - Psychiatric Exam Psychiatric exam: Normal Affect - Skin Skin Exam: Normal Color Results - Vital Signs Recent Vital Signs: Last Vital Signs Temp 97.8 F 10/04/18 07:20 Pulse 67 10/04/18 07:20 Resp 20 10/04/18 07:20 BP 119/55 L 10/04/18 07:20 Pulse Ox 98 10/04/18 07:20 - Labs Result Diagrams: 10/02/18 14:34 10/03/18 11:41 Labs: Laboratory Results - last 24 hr 10/03/18 10/03/18 10/04/18 16:55 21:22 06:31 POC Glucose (mg/dL) 158 H 164 H 210 H 10/04/18 11:38 POC Glucose (mg/dL) 197 H - EKG Data EKG Interpreted by: Myself EKG shows normal: Sinus rhythm Assessment & Plan (1) CAD (coronary artery disease) Assessment and Plan: stable. no current angina. medical therapy Status: Acute (2) Hyperlipidemia Assessment and Plan: monitor LDL Status: Acute (3) AAA (abdominal aortic aneurysm) Assessment and Plan: appears stable inzize although there is appearance of intramural plaque. surgery following Status: Acute (4) Cardiomyopathy Assessment and Plan: not in heart failure Status: Acute (5) Retroperitoneal mass Assessment and Plan: surgery following Status: Acute
[2018-10-05] MEDS: (Novolog) Insulin Aspart, Recombinant 100 u/ml 10 ml vial SC SCH ×4 (08:00→22:56)
[2018-10-05] MEDS ORDERED: Pneumococcal 23-Valent Vaccine IM ONE (10:00)
--- NOTE | 2018-10-05 10:58 | CP.PCM.PN ---
Subjective - Date & Time of Evaluation Date of Evaluation: 10/05/18 Time of Evaluation: 10:56 - Subjective Subjective: Covering Dr Villareal CT confirms pelvic mass, likely bulky adenopathy C/O chest discomfort relieved by belching Objective - Vital Signs/Intake and Output Vital Signs (last 24 hours): Temp Pulse Resp BP Pulse Ox 97.9 F 67 20 102/51 L 97 10/04/18 23:25 10/04/18 23:25 10/04/18 23:25 10/04/18 23:25 10/05/18 03:28 - Medications Medications: Current Medications Dextrose (Dextrose 50% Inj) 0 ml IV STAT PRN; Protocol PRN Reason: Hypoglycemia Protocol Dextrose (Glutose 15) 0 gm PO ONCE PRN; Protocol PRN Reason: Hypoglycemia Protocol Finasteride (Proscar) 5 mg PO DAILY [facility] Last Admin: 10/05/18 09:48 Dose: 5 mg Glucagon (Glucagen Diagnostic Kit) 0 mg IM STAT PRN; Protocol PRN Reason: Hypoglycemia Protocol Dextrose (Dextrose 5% In Water 1000 Ml) 1,000 mls @ 0 mls/hr IV .Q0M PRN; Protocol PRN Reason: Hypoglycemia Protocol Insulin Aspart (Novolog) 0 unit SC ACHS [facility]; Protocol Last Admin: 10/05/18 08:00 Dose: 3 units Rosuvastatin Calcium (Crestor) 10 mg PO HS [facility] Last Admin: 10/04/18 21:57 Dose: 10 mg Tamsulosin HCl (Flomax) 0.4 mg PO DAILY [facility] Last Admin: 10/05/18 09:48 Dose: 0.4 mg - Labs Labs: 10/02/18 14:34 10/03/18 11:41 PT 12.1 SECONDS (9.7-12.2) 10/02/18 14:34 INR 1.1 10/02/18 14:34 APTT 29 SECONDS (21-34) 10/02/18 14:34 - Constitutional Appears: Well, No Acute Distress - Head Exam Head Exam: NORMOCEPHALIC - Respiratory Exam Respiratory Exam: NORMAL BREATHING PATTERN - Cardiovascular Exam Cardiovascular Exam: REGULAR RHYTHM - GI/Abdominal Exam GI & Abdominal Exam: Soft. absent: Tenderness, Mass Assessment and Plan (1) AAA (abdominal aortic aneurysm) Assessment & Plan: Vascular surgery management Status: Acute (2) Retroperitoneal mass Assessment & Plan: Recommend surgery follow up + biopsy via CT scan Status: Acute
--- NOTE | 2018-10-05 15:07 | CP.PCM.PN ---
Subjective - Date & Time of Evaluation Date of Evaluation: 10/05/18 Time of Evaluation: 15:06 - Subjective Subjective: Surgery Progress note- Dr. Delcid (covering Dr. Lopez) pt S&E. Family at bedside seeking better explanation about AAA and adenopathy. Patient denies abdominal pain at this time. + OOB and ambulating. Denies fevers, chills, chest pain, shortness of breath Objective - Vital Signs/Intake and Output Vital Signs (last 24 hours): Temp Pulse Resp BP Pulse Ox 97.9 F 73 18 102/51 L 97 10/04/18 23:25 10/05/18 12:44 10/05/18 12:44 10/04/18 23:25 10/05/18 03:28 - Medications Medications: Current Medications Dextrose (Dextrose 50% Inj) 0 ml IV STAT PRN; Protocol PRN Reason: Hypoglycemia Protocol Dextrose (Glutose 15) 0 gm PO ONCE PRN; Protocol PRN Reason: Hypoglycemia Protocol Finasteride (Proscar) 5 mg PO DAILY [facility] Last Admin: 10/05/18 09:48 Dose: 5 mg Glucagon (Glucagen Diagnostic Kit) 0 mg IM STAT PRN; Protocol PRN Reason: Hypoglycemia Protocol Dextrose (Dextrose 5% In Water 1000 Ml) 1,000 mls @ 0 mls/hr IV .Q0M PRN; Protocol PRN Reason: Hypoglycemia Protocol Insulin Aspart (Novolog) 0 unit SC [facility]S [facility]; Protocol Last Admin: 10/05/18 12:32 Dose: 2 units Rosuvastatin Calcium (Crestor) 10 mg PO HS [facility] Last Admin: 10/04/18 21:57 Dose: 10 mg Tamsulosin HCl (Flomax) 0.4 mg PO DAILY [facility] Last Admin: 10/05/18 09:48 Dose: 0.4 mg - Labs Labs: 10/02/18 14:34 10/03/18 11:41 PT 12.1 SECONDS (9.7-12.2) 10/02/18 14:34 INR 1.1 10/02/18 14:34 APTT 29 SECONDS (21-34) 10/02/18 14:34 Assessment and Plan - Assessment and Plan (Free Text) Assessment: 78M hemipelvic mass w/ stable AAA Plan: - serial abd exams - continue to monitor clinically - medical management per primary team - [facility]
--- NOTE | 2018-10-05 19:38 | CARD ---
APPROVED REPORT Date of service: 10/02/2018 EKG Measurement Heart [id number] CT [id number] <Conclusion> Normal sinus rhythm ST & T wave abnormality, consider inferior ischemia Abnormal ECG
[2018-10-05] MEDS: Apap-Butalbital-Caffeine 325-50-40mg Tab PO SCH (20:32)
--- NOTE | 2018-10-05 20:53 | CP.PCM.PN ---
Subjective - Date & Time of Evaluation Date of Evaluation: 10/04/18 Time of Evaluation: 04:00 - Subjective Subjective: seen pt with family at bedside discussed plan seen by surgery and GI-input well appreciated Dr Esparza consultation-pending Objective - Vital Signs/Intake and Output Vital Signs (last 24 hours): Temp Pulse Resp BP Pulse Ox 98.7 F 65 20 141/71 96 10/05/18 16:12 10/05/18 16:12 10/05/18 16:12 10/05/18 16:12 10/05/18 16:12 - Medications Medications: Current Medications Acetaminophen/Butalbital/Caffeine (Fioricet) 1 tab PO Q6 [facility] Last Admin: 10/05/18 20:32 Dose: 1 tab Dextrose (Dextrose 50% Inj) 0 ml IV STAT PRN; Protocol PRN Reason: Hypoglycemia Protocol Dextrose (Glutose 15) 0 gm PO ONCE PRN; Protocol PRN Reason: Hypoglycemia Protocol Finasteride (Proscar) 5 mg PO DAILY [facility] Last Admin: 10/05/18 09:48 Dose: 5 mg Glucagon (Glucagen Diagnostic Kit) 0 mg IM STAT PRN; Protocol PRN Reason: Hypoglycemia Protocol Dextrose (Dextrose 5% In Water 1000 Ml) 1,000 mls @ 0 mls/hr IV .Q0M PRN; Protocol PRN Reason: Hypoglycemia Protocol Insulin Aspart (Novolog) 0 unit SC [facility]; Protocol Last Admin: 10/05/18 18:49 Dose: 3 units Rosuvastatin Calcium (Crestor) 10 mg PO HS [facility] Last Admin: 10/04/18 21:57 Dose: 10 mg Tamsulosin HCl (Flomax) 0.4 mg PO DAILY [facility] Last Admin: 10/05/18 09:48 Dose: 0.4 mg - Labs Labs: 10/02/18 14:34 10/03/18 11:41 PT 12.1 SECONDS (9.7-12.2) 10/02/18 14:34 INR 1.1 10/02/18 14:34 APTT 29 SECONDS (21-34) 10/02/18 14:34 - Constitutional Appears: Non-toxic - Head Exam Head Exam: NORMAL INSPECTION - Eye Exam Eye Exam: absent: Scleral icterus - ENT Exam ENT Exam: Mucous Membranes Moist - Neck Exam Neck Exam: Full ROM - Respiratory Exam Respiratory Exam: Clear to Ausculation Bilateral - Cardiovascular Exam Cardiovascular Exam: REGULAR RHYTHM - GI/Abdominal Exam GI & Abdominal Exam: Soft - Extremities Exam Extremities Exam: absent: Pedal Edema - Neurological Exam Neurological Exam: Alert, Oriented x3 Assessment and Plan - Assessment and Plan (Free Text) Assessment: Syncope Pelvic lymphadenopathy AAA Plan: Work-up in progress Plan discussed extensively with family
--- NOTE | 2018-10-05 20:59 | CP.PCM.PN ---
Subjective - Date & Time of Evaluation Date of Evaluation: 10/05/18 Time of Evaluation: 20:58 - Subjective Subjective: c/o headache hx of syncope will do neuro work-up seen by railroad cook, Dr Esparza-input well appreciated Objective - Vital Signs/Intake and Output Vital Signs (last 24 hours): Temp Pulse Resp BP Pulse Ox 98.7 F 65 20 141/71 96 10/05/18 16:12 10/05/18 16:12 10/05/18 16:12 10/05/18 16:12 10/05/18 16:12 - Medications Medications: Current Medications Acetaminophen/Butalbital/Caffeine (Fioricet) 1 tab PO Q6 [facility] Last Admin: 10/05/18 20:32 Dose: 1 tab Dextrose (Dextrose 50% Inj) 0 ml IV STAT PRN; Protocol PRN Reason: Hypoglycemia Protocol Dextrose (Glutose 15) 0 gm PO ONCE PRN; Protocol PRN Reason: Hypoglycemia Protocol Finasteride (Proscar) 5 mg PO DAILY [facility] Last Admin: 10/05/18 09:48 Dose: 5 mg Glucagon (Glucagen Diagnostic Kit) 0 mg IM STAT PRN; Protocol PRN Reason: Hypoglycemia Protocol Dextrose (Dextrose 5% In Water 1000 Ml) 1,000 mls @ 0 mls/hr IV .Q0M PRN; Pro tocol PRN Reason: Hypoglycemia Protocol Insulin Aspart (Novolog) 0 unit SC ACHS [facility]; Protocol Last Admin: 10/05/18 18:49 Dose: 3 units Rosuvastatin Calcium (Crestor) 10 mg PO HS [facility] Last Admin: 10/04/18 21:57 Dose: 10 mg Tamsulosin HCl (Flomax) 0.4 mg PO DAILY [facility] Last Admin: 10/05/18 09:48 Dose: 0.4 mg - Labs Labs: 10/02/18 14:34 10/03/18 11:41 PT 12.1 SECONDS (9.7-12.2) 10/02/18 14:34 INR 1.1 10/02/18 14:34 APTT 29 SECONDS (21-34) 10/02/18 14:34 Assessment and Plan - Assessment and Plan (Free Text) Assessment: Headache Hx of syncope AAA Pelvic lymphadenopathy Plan: CT scan of head Carotid ultrasound ECHO Neurology consult
[2018-10-06 06:44] LABS: PROLACTIN 14.1 ng/mL (3.7-17.9)
[2018-10-06] MEDS: Apap-Butalbital-Caffeine 325-50-40mg Tab PO SCH ×2 (06:59→18:27)
--- NOTE | 2018-10-06 07:09 | CP.PCM.CON ---
History of Present Illness - History of Present Illness History of Present Illness: CONSULTATION DICTATED RECURRENT SYNCOPE NOT WITNESSED POST EVENT GENERALIZED WEAKNESS R/O CENTRAL CAUSE - ISCHEMIA / SIEZURES MRI CORRECT ELECTROLYTES AND SUGAR MRI/EEG STROKE PROPHYLAXIS Past Patient History - Past Medical History & Family History Past Medical History?: Yes - Past Social History Smoking Status: Former Smoker - CARDIAC Hx Hypercholesterolemia: Yes Hx Hypertension: Yes - PULMONARY Hx Respiratory Disorders: No - NEUROLOGICAL Hx Alzheimer's Disease: Yes - HEENT Hx HEENT Problems: Yes Hx Cataracts: Yes (CATARACT REMOVAL 2 YRS AGO) - RENAL Hx Chronic Kidney Disease: No - ENDOCRINE/METABOLIC Hx Diabetes Mellitus Type 2: Yes - HEMATOLOGICAL/ONCOLOGICAL Hx Blood Transfusions: No Hx Blood Transfusion Reaction: No - INTEGUMENTARY Hx Dermatological Problems: No - MUSCULOSKELETAL/RHEUMATOLOGICAL Hx Falls: No Hx Fractures: Yes (HAND CASTED) - GASTROINTESTINAL Hx Gastritis: Yes - GENITOURINARY/GYNECOLOGICAL Hx Genitourinary Disorders: Yes Hx Prostate Problems: Yes - PSYCHIATRIC Hx Substance Use: No - SURGICAL HISTORY Hx Surgeries: Yes Hx Herniorrhaphy: Yes Other/Comment: cardiac stents x4 - ANESTHESIA Hx Anesthesia: Yes Hx Anesthesia Reactions: No Hx Malignant Hyperthermia: No Meds Allergies/Adverse Reactions: Allergies Allergy/AdvReac Type Severity Reaction Status Date / Time No Known Allergies Allergy Verified 10/02/18 13:13 - Medications Medications: Current Medications Acetaminophen/Butalbital/Caffeine (Fioricet) 1 tab PO Q6 [facility] Last Admin: 10/06/18 06:59 Dose: Not Given Dextrose (Dextrose 50% Inj) 0 ml IV STAT PRN; Protocol PRN Reason: Hypoglycemia Protocol Dextrose (Glutose 15) 0 gm PO ONCE PRN; Protocol PRN Reason: Hypoglycemia Protocol Finasteride (Proscar) 5 mg PO DAILY [facility] Last Admin: 10/05/18 09:48 Dose: 5 mg Glucagon (Glucagen Diagnostic Kit) 0 mg IM STAT PRN; Protocol PRN Reason: Hypoglycemia Protocol Dextrose (Dextrose 5% In Water 1000 Ml) 1,000 mls @ 0 mls/hr IV .Q0M PRN; Protocol PRN Reason: Hypoglycemia Protocol Insulin Aspart (Novolog) 0 unit SC ACHS [facility]; Protocol Last Admin: 10/05/18 22:56 Dose: Not Given Rosuvastatin Calcium (Crestor) 10 mg PO HS [facility] Last Admin: 10/05/18 22:19 Dose: 10 mg Tamsulosin HCl (Flomax) 0.4 mg PO DAILY [facility] Last Admin: 10/05/18 09:48 Dose: 0.4 mg Results - Vital Signs Recent Vital Signs: Last Vital Signs Temp 98.1 F 10/06/18 00:43 Pulse 57 L 10/06/18 00:43 Resp 20 10/06/18 00:43 BP 125/67 10/06/18 00:43 Pulse Ox 98 10/06/18 00:43 - Labs Result Diagrams: 10/02/18 14:34 10/03/18 11:41 Labs: Laboratory Results - last 24 hr 10/05/18 10/06/18 16:46 06:02 POC Glucose (mg/dL) 216 H Phosphorus 3.9 Magnesium 1.7 Prolactin 14.1
[2018-10-06] MEDS: (Novolog) Insulin Aspart, Recombinant 100 u/ml 10 ml vial SC SCH ×3 (07:45→22:46)
--- NOTE | 2018-10-06 09:10 | CP.PCM.PN ---
Subjective - Date & Time of Evaluation Date of Evaluation: 10/06/18 Time of Evaluation: 09:07 - Subjective Subjective: Patient denies having nausea, vomiting, abdominal pain. He had a formed bowel movement yesterday, but has not had a bowel movement so far today. Objective - Vital Signs/Intake and Output Vital Signs (last 24 hours): Temp Pulse Resp BP Pulse Ox 98.5 F 67 18 118/73 96 10/06/18 07:00 10/06/18 08:00 10/06/18 07:00 10/06/18 07:00 10/06/18 07:00 - Medications Medications: Current Medications Acetaminophen/Butalbital/Caffeine (Fioricet) 1 tab PO Q6 [facility] Last Admin: 10/06/18 06:59 Dose: Not Given Aspirin (Ecotrin) 81 mg PO DAILY [facility] Last Admin: 10/06/18 09:06 Dose: 81 mg Dextrose (Dextrose 50% Inj) 0 ml IV STAT PRN; Protocol PRN Reason: Hypoglycemia Protocol Dextrose (Glutose 15) 0 gm PO ONCE PRN; Protocol PRN Reason: Hypoglycemia Protocol Finasteride (Proscar) 5 mg PO DAILY [facility] Last Admin: 10/06/18 08:58 Dose: 5 mg Glucagon (Glucagen Diagnostic Kit) 0 mg IM STAT PRN; Protocol PRN Reason: Hypoglycemia Protocol Insulin Aspart (Novolog) 0 unit SC ACHS [facility]; Protocol Last Admin: 10/06/18 07:45 Dose: 4 units Rosuvastatin Calcium (Crestor) 10 mg PO HS [facility] Last Admin: 10/05/18 22:19 Dose: 10 mg Tamsulosin HCl (Flomax) 0.4 mg PO DAILY [facility] Last Admin: 10/06/18 08:59 Dose: 0.4 mg - Labs Labs: 10/02/18 14:34 10/03/18 11:41 PT 12.1 SECONDS (9.7-12.2) 10/02/18 14:34 INR 1.1 10/02/18 14:34 APTT 29 SECONDS (21-34) 10/02/18 14:34 - Constitutional Appears: No Acute Distress - Head Exam Head Exam: ATRAUMATIC, NORMOCEPHALIC - Eye Exam Eye Exam: EOMI, PERRL - Neck Exam Neck Exam: absent: Lymphadenopathy, Thyromegaly - Respiratory Exam Respiratory Exam: NORMAL BREATHING PATTERN. absent: Rales, Rhonchi, Wheezes - Cardiovascular Exam Cardiovascular Exam: REGULAR RHYTHM, +S1, +S2. absent: Gallop, Rubs, Murmur - GI/Abdominal Exam GI & Abdominal Exam: Soft, Normal Bowel Sounds. absent: Tenderness, Mass, Organomegaly - Rectal Exam Rectal Exam: Deferred - Extremities Exam Extremities Exam: absent: Calf Tenderness, Pedal Edema Assessment and Plan (1) Retroperitoneal mass Assessment & Plan: Repeat CT scan shows mass in right side of the pelvis 5.3 x 7.6 cm draped over internal and external iliac arteries. Blood work is significant for PSA 186, up from 46.7 on 07/27/15. In this setting, the mass is most likely adenopathy due to metastatic prostate cancer. Await urology consult. Status: Acute
--- NOTE | 2018-10-06 09:52 | CON ---
DATE: 10/06/2018 TIME OF EVALUATION: 07:05 a.m. ATTENDING PHYSICIAN: Shell Carrasco MD. LOCATION: The patient's room is 653, bed B. REASON FOR THE CONSULTATION: Syncopal attack. CHIEF COMPLAINT: The patient was brought in as per the doctor's advice, history of syncopal attack at home. From neurological point of view, I was called in to evaluate him for further management. HISTORY OF PRESENT ILLNESS: Mr. Trey Arias is a 78-year-old right-handed [place]ian-speaking male presenting with loss of consciousness while he was at home. He lives alone. He claims that he forgot to take the medication for his sugar that made him to fall down. He states that he was on the ground for about a few seconds. Then, he realized that the whole body was weak. He could not get up on his own. No history of obvious injury to his head or body. No history of bowel or bladder incontinence at the scene. No history of bitten tongue. History of similar episodes happened in the past, however, it is severe than prior episode. PAST MEDICAL HISTORY: Dementia, cardiac arrhythmia, diabetes, history of fracture in the hand, gastritis, hypertension, and dyslipidemia. History of catheterization twice in the past. ALLERGIES: NO KNOWN ALLERGIES. REVIEW OF SYSTEMS: A 12-point system being reviewed. From neuro, syncopal attack. MEDICATIONS: Crestor, Fioricet, Flomax, NovoLog, and Proscar. PHYSICAL EXAMINATION: VITAL SIGNS: Blood pressure 125/67, mean artery pressure of 86, respiratory rate 18, pulse rate 57, temperature 98.1. NECK: Supple. No carotid bruit. HEART: Heart sounds are regular. CHEST: Fair air entry. EXTREMITIES: Significant distal muscle atrophy noted in both the hands and feet. NEUROLOGIC EXAMINATION: Mental status examination: He is awake, alert, and oriented to person, place, and time. Speech is clear. Naming, repetition, fluency, comprehension all within normal. Significant retrograde amnesia. No antegrade amnesia. No suicidal ideation. No hallucination. Cranial nerve examination: Visual field intact. Pupils are reactive. Extraocular movement normal. No nystagmus. No facial sensory deficit. No facial asymmetry. Hearing is normal. Tongue is midline. Good gag. Motor examination: Outstretched hand with eyes closed, no drift noted. Power is symmetric on either side. Significant distal muscle groups, atrophy noted as stated above. Deep tendon reflexes absent. Plantars are downgoing. Sensory examination: No cortical sensory loss. 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 Coordination: Finger-nose test is intact. Gait is deferred at this time. CONCLUSION: On reviewing his history in the document and from him, the clinical examination is suggestive of possible syncopal attack which is probably the central etiology. From neuro, it could be ischemic process or seizures. diabetes mellitus, could be related to hypoglycemia or hyperglycemia as well, however, other electrolyte imbalance should be worked up. The patient does have significant medical history, could raise the possibility of ischemic process in the brain. The patient also is presenting with significant distal sensory motor neuropathy which is probably secondary to his diabetes mellitus. WORKUP: EKG, normal sinus rhythm. Blood workup: WBC 6.3, hemoglobin 12.4, hematocrit 36.7, platelet 149. PT 12.1, INR 1.1, PTT 29. Sodium 137, potassium 4.3, chloride 101, bicarbonate 31, GFR more than 60, glucose 268, calcium 9.9, magnesium 1.7. Urine shows 2+ glycosuria. RECOMMENDATIONS: 1. The patient should be on antiplatelets in addition to statin and angiotensin receptor blockers. 2. MRI of the brain to rule out any structural cause that could explain his problem. 3. Carotid Doppler to rule out any focal stenosis. 4. Electroencephalogram to rule out paroxysmal activities. Controlled the diabetes. Controlled his electrolyte imbalance. The patient can be up and ambulate by himself. The patient definitely needs electrodiagnostic studies which can be done as outpatient to assess his peripheral neuropathy. No antiepileptic drug is needed until the workup is completed. Depending on his electrodiagnostic studies, whether he needs antiepileptic drugs or not that I will do decide following his workup. Bruno Ireland MD MTDD
--- NOTE | 2018-10-06 15:06 | MRI ---
Date of service: 10/06/2018 PROCEDURE: MRI BRAIN WITHOUT CONTRAST HISTORY: NEW VBI- PROSTHODONTIST ISCHEMIC PROCESS COMPARISON: 12/30/2013 TECHNIQUE: Multiplanar, multisequence MR images of the brain were obtained without intravenous contrast enhancement. FINDINGS: HEMORRHAGE: None DWI: No evidence of an acute or early subacute infarction. BRAIN PARENCHYMA: No mass effect or edema. Minimal cortical chronic microvascular changes in the periventricular white matter. VENTRICLES: Unremarkable. No hydrocephalus. CRANIUM: Unremarkable. ORBITS: Grossly unremarkable. PARANASAL SINUSES/MASTOIDS: Clear VASCULAR SYSTEM: Skull base flow voids intact. OTHER FINDINGS: None. IMPRESSION: No acute intracranial findings
--- NOTE | 2018-10-06 15:52 | CP.PCM.PN ---
Subjective - Date & Time of Evaluation Date of Evaluation: 10/06/18 Time of Evaluation: 07:00 - Subjective Subjective: General Surgery Note for Dr. Lopez Patient seen and examined at bedside. No acute event overnight. Patient denies abdominal pain at this time. + OOB and ambulating. Tolerating diet. No complaints at this time. Objective - Vital Signs/Intake and Output Vital Signs (last 24 hours): Temp Pulse Resp BP Pulse Ox 98.5 F 67 18 118/73 96 10/06/18 07:00 10/06/18 08:00 10/06/18 07:00 10/06/18 07:00 10/06/18 07:00 - Medications Medications: Current Medications Acetaminophen/Butalbital/Caffeine (Fioricet) 1 tab PO Q6 [facility] Last Admin: 10/06/18 06:59 Dose: Not Given Aspirin (Ecotrin) 81 mg PO DAILY [facility] Last Admin: 10/06/18 09:06 Dose: 81 mg Dextrose (Dextrose 50% Inj) 0 ml IV STAT PRN; Protocol PRN Reason: Hypoglycemia Protocol Dextrose (Glutose 15) 0 gm PO ONCE PRN; Protocol PRN Reason: Hypoglycemia Protocol Finasteride (Proscar) 5 mg PO DAILY [facility] Last Admin: 10/06/18 08:58 Dose: 5 mg Glucagon (Glucagen Diagnostic Kit) 0 mg IM STAT PRN; Protocol PRN Reason: Hypoglycemia Protocol Insulin Aspart (Novolog) 0 unit SC ACHS [facility]; Protocol Last Admin: 10/06/18 07:45 Dose: 4 units Rosuvastatin Calcium (Crestor) 10 mg PO HS [facility] Last Admin: 10/05/18 22:19 Dose: 10 mg Tamsulosin HCl (Flomax) 0.4 mg PO DAILY [facility] Last Admin: 10/06/18 08:59 Dose: 0.4 mg - Labs Labs: 10/02/18 14:34 10/03/18 11:41 PT 12.1 SECONDS (9.7-12.2) 10/02/18 14:34 INR 1.1 10/02/18 14:34 APTT 29 SECONDS (21-34) 10/02/18 14:34 - Constitutional Appears: No Acute Distress - Head Exam Head Exam: ATRAUMATIC, NORMOCEPHALIC - ENT Exam ENT Exam: Mucous Membranes Moist - Respiratory Exam Respiratory Exam: NORMAL BREATHING PATTERN - Cardiovascular Exam Cardiovascular Exam: REGULAR RHYTHM - GI/Abdominal Exam GI & Abdominal Exam: Soft, Normal Bowel Sounds. absent: Tenderness - Extremities Exam Extremities Exam: Normal Capillary Refill - Back Exam Back Exam: absent: CVA tenderness (L), CVA tenderness (R) - Neurological Exam Neurological Exam: Alert, Awake, Oriented x3 - Psychiatric Exam Psychiatric exam: Normal Affect, Normal Mood - Skin Skin Exam: Dry, Intact, Normal Color, Warm Assessment and Plan - Assessment and Plan (Free Text) Assessment: 78M with hemipelvic mass and AAA Plan: - IR CT guided biopsy of mass - medical management per primary team - further recommendations as per Dr. John Casas PGY2
--- NOTE | 2018-10-06 17:21 | CARD ---
APPROVED REPORT Date of service: 10/06/2018 EXAM: Two-dimensional and M-mode echocardiogram with Doppler and color Doppler. Other Information Quality : GoodRhythm : INDICATION Abnormal EKG/Arrhythmia Syncope CAD, stents, Hx of cardiomyopathy, s/p angioplasty RISK FACTORS Hypertension Hyperlipidemia Diabetes 2D DIMENSIONS IVSd0.9 (0.7-1.1cm)LVDd5.0 (3.9-5.9cm) PWd0.9 (0.7-1.1cm)LA Aeltmv10 (18-58mL) LVDs3.3 (2.5-4.0cm)FS (%) 33.5 % LVEF (%)62.0 (>50%)LVEF (Santiago's)61.41 % M-Mode DIMENSIONS Left Atrium (MM)2.71 (2.5-4.0cm)IVSd0.96 (0.7-1.1cm) Aortic Root4.12 (2.2-3.7cm)LVDd5.46 (4.0-5.6cm) Aortic Cusp Exc.2.25 (1.5-2.0cm)PWd1.00 (0.7-1.1cm) FS (%) 34 %LVDs3.62 (2.0-3.8cm) Aortic Valve AI P 1/2 Hgqs512gb Mitral Valve MV E Mrqiabsd29.4cm/sMV A Osxawbny99.8cm/sE/A ratio0.8 TDI Lateral E' Peak V9.06cm/sMedial E' Peak V6.48cm/sE/Lateral E'7.3 E/Medial E'10.2 LEFT VENTRICLE The left ventricle is normal size. There is normal left ventricular wall thickness. The left ventricular function is normal. The left ventricular ejection fraction is within the normal range. There is normal LV segmental wall motion. Transmitral Doppler flow pattern is Grade I-abnormal relaxation pattern. RIGHT VENTRICLE The right ventricle is normal size. There is normal right ventricular wall thickness. The right ventricular systolic function is normal. ATRIA The left atrium size is normal. The right atrium size is normal. AORTIC VALVE The aortic valve is mildly thickened. There is mild aortic regurgitation. There is no aortic valvular stenosis. MITRAL VALVE The mitral valve is normal in structure. There is no mitral valve stenosis. There is no mitral valve regurgitation noted. TRICUSPID VALVE The tricuspid valve is normal in structure. There is trace tricuspid regurgitation. PULMONIC VALVE The pulmonary valve is normal in structure. There is trace pulmonic valvular regurgitation. GREAT VESSELS The aortic root is mildly enlarged. The IVC is normal in size and collapses >50% with inspiration. <Conclusion> There is normal left ventricular wall thickness. The left ventricular function is normal. The left ventricular ejection fraction is within the normal range. There is normal LV segmental wall motion. Transmitral Doppler flow pattern is Grade I-abnormal relaxation pattern. There is mild aortic regurgitation. The aortic root is mildly enlarged.
--- NOTE | 2018-10-07 00:24 | CP.PCM.CON ---
History of Present Illness - History of Present Illness History of Present Illness: UROLOGY CONSULTATION Past Patient History - Past Medical History & Family History Past Medical History?: Yes - Past Social History Smoking Status: Former Smoker - CARDIAC Hx Hypercholesterolemia: Yes Hx Hypertension: Yes - PULMONARY Hx Respiratory Disorders: No - NEUROLOGICAL Hx Alzheimer's Disease: Yes - HEENT Hx HEENT Problems: Yes Hx Cataracts: Yes (CATARACT REMOVAL 2 YRS AGO) - RENAL Hx Chronic Kidney Disease: No - ENDOCRINE/METABOLIC Hx Diabetes Mellitus Type 2: Yes - HEMATOLOGICAL/ONCOLOGICAL Hx Blood Transfusions: No Hx Blood Transfusion Reaction: No - INTEGUMENTARY Hx Dermatological Problems: No - MUSCULOSKELETAL/RHEUMATOLOGICAL Hx Falls: No Hx Fractures: Yes (HAND CASTED) - GASTROINTESTINAL Hx Gastritis: Yes - GENITOURINARY/GYNECOLOGICAL Hx Genitourinary Disorders: Yes Hx Prostate Problems: Yes - PSYCHIATRIC Hx Substance Use: No - SURGICAL HISTORY Hx Surgeries: Yes Hx Herniorrhaphy: Yes Other/Comment: cardiac stents x4 - ANESTHESIA Hx Anesthesia: Yes Hx Anesthesia Reactions: No Hx Malignant Hyperthermia: No Meds Allergies/Adverse Reactions: Allergies Allergy/AdvReac Type Severity Reaction Status Date / Time No Known Allergies Allergy Verified 10/02/18 13:13 - Medications Medications: Current Medications Acetaminophen/Butalbital/Caffeine (Fioricet) 1 tab PO Q6 [facility] Last Admin: 10/06/18 18:27 Dose: 1 tab Aspirin (Ecotrin) 81 mg PO DAILY [facility] Last Admin: 10/06/18 09:06 Dose: 81 mg Dextrose (Dextrose 50% Inj) 0 ml IV STAT PRN; Protocol PRN Reason: Hypoglycemia Protocol Dextrose (Glutose 15) 0 gm PO ONCE PRN; Protocol PRN Reason: Hypoglycemia Protocol Finasteride (Proscar) 5 mg PO DAILY [facility] Last Admin: 10/06/18 08:58 Dose: 5 mg Glucagon (Glucagen Diagnostic Kit) 0 mg IM STAT PRN; Protocol PRN Reason: Hypoglycemia Protocol Insulin Aspart (Novolog) 0 unit SC [facility]; Protocol Last Admin: 10/06/18 22:46 Dose: 3 units Rosuvastatin Calcium (Crestor) 10 mg PO HS [facility] Last Admin: 10/06/18 22:44 Dose: 10 mg Tamsulosin HCl (Flomax) 0.4 mg PO DAILY [facility] Last Admin: 10/06/18 08:59 Dose: 0.4 mg Results - Vital Signs Recent Vital Signs: Last Vital Signs Temp 98.5 F 10/06/18 07:00 Pulse 67 10/06/18 08:00 Resp 18 10/06/18 07:00 BP 118/73 10/06/18 07:00 Pulse Ox 96 10/06/18 07:00 - Labs Result Diagrams: 10/02/18 14:34 10/03/18 11:41 Labs: Laboratory Results - last 24 hr 10/05/18 10/05/18 10/05/18 06:26 11:48 21:15 POC Glucose (mg/dL) 215 H 186 H 262 H Phosphorus Magnesium Prolactin 10/06/18 10/06/18 10/06/18 06:02 06:27 13:00 POC Glucose (mg/dL) 270 H 307 H Phosphorus 3.9 Magnesium 1.7 Prolactin 14.1 Assessment & Plan - Assessment and Plan (Free Text) Assessment: UROLOGY CONSULTATION IMP: ABDOMINAL PAIN WEIGHT LOSS ELEVATED PSA ENLARGED PROSTATE R PELVIC MASS ABD AORTIC ANEURYSM FULL NOTE T/F THANK YOU. YS - Date & Time Date: 10/06/18 Time: 12:30
[2018-10-07] MEDS: (Novolog) Insulin Aspart, Recombinant 100 u/ml 10 ml vial SC SCH ×4 (07:30→22:36)
[2018-10-07 09:16] LABS: URINE BILIRUBIN NEGATIVE (NEGATIVE); URINE BLOOD NEGATIVE (NEGATIVE); URINE CLARITY Clear (Clear); URINE COLOR Yellow (YELLOW); URINE GLUCOSE (UA) 3+ mg/dL (Normal); URINE LEUKOCYTE ESTERASE NEG Leu/uL (Negative); URINE PROTEIN NEGATIVE (NEGATIVE); URINE UROBILINOGEN NORMAL mg/dL (0.2-1.0)
--- NOTE | 2018-10-07 09:36 | CP.PCM.PN ---
Subjective - Date & Time of Evaluation Date of Evaluation: 10/07/18 Time of Evaluation: 07:00 - Subjective Subjective: Surgery: John Patient seen and examined this am at bedside. No complaints at this time. No acute overnight events per nursing. patient denies f/c, n/v abdominal pain Objective - Vital Signs/Intake and Output Vital Signs (last 24 hours): Temp Pulse Resp BP Pulse Ox 98.2 F 54 L 18 117/66 96 10/07/18 07:00 10/07/18 07:00 10/07/18 07:00 10/07/18 07:00 10/07/18 07:00 Intake and Output: 10/07/18 10/07/18 06:59 18:59 Intake Total 350 Balance 350 - Medications Medications: Current Medications Acetaminophen/Butalbital/Caffeine (Fioricet) 1 tab PO Q6 [facility] Last Admin: 10/06/18 18:27 Dose: 1 tab Aspirin (Ecotrin) 81 mg PO DAILY [facility] Last Admin: 10/06/18 09:06 Dose: 81 mg Dextrose (Dextrose 50% Inj) 0 ml IV STAT PRN; Protocol PRN Reason: Hypoglycemia Protocol Dextrose (Glutose 15) 0 gm PO ONCE PRN; Protocol PRN Reason: Hypoglycemia Protocol Finasteride (Proscar) 5 mg PO DAILY [facility] Last Admin: 10/06/18 08:58 Dose: 5 mg Glucagon (Glucagen Diagnostic Kit) 0 mg IM STAT PRN; Protocol PRN Reason: Hypoglycemia Protocol Insulin Aspart (Novolog) 0 unit SC ACHS [facility]; Protocol Last Admin: 10/06/18 22:46 Dose: 3 units Rosuvastatin Calcium (Crestor) 10 mg PO HS [facility] Last Admin: 10/06/18 22:44 Dose: 10 mg Tamsulosin HCl (Flomax) 0.4 mg PO DAILY [facility] Last Admin: 10/06/18 08:59 Dose: 0.4 mg - Labs Labs: 10/02/18 14:34 10/03/18 11:41 PT 12.1 SECONDS (9.7-12.2) 10/02/18 14:34 INR 1.1 10/02/18 14:34 APTT 29 SECONDS (21-34) 10/02/18 14:34 - Constitutional Appears: Well, Non-toxic, No Acute Distress - Head Exam Head Exam: ATRAUMATIC, NORMOCEPHALIC - Eye Exam Eye Exam: EOMI - ENT Exam ENT Exam: Mucous Membranes Moist - Respiratory Exam Respiratory Exam: NORMAL BREATHING PATTERN - GI/Abdominal Exam GI & Abdominal Exam: Soft. absent: Guarding, Tenderness - Extremities Exam Extremities Exam: absent: Calf Tenderness, Pedal Edema - Neurological Exam Neurological Exam: Alert, Awake, Oriented x3 - Psychiatric Exam Psychiatric exam: Normal Affect, Normal Mood - Skin Skin Exam: Dry, Intact, Normal Color, Warm Assessment and Plan - Assessment and Plan (Free Text) Assessment: 78 yr old male with stable AAA and right abdominal/pelvic mass Plan: - pt to go for IR biopsy today - resume diet following procedure - will f/u pathology results - medical management per primary team - further recs per Dr. John Hare, PGY 1
--- NOTE | 2018-10-07 12:17 | VASCLAB ---
Date of service: 10/06/2018 PROCEDURE: Carotid Duplex Exam. HISTORY: ASSESS STENOSIS COMPARISON: None available. TECHNIQUE: Grayscale and duplex Doppler evaluation of the cervical carotid and vertebral arteries were performed. The common carotid, carotid bifurcations and cervical Internal Carotid Artery (ICA) and proximal External Carotid Artery (ECA) were evaluated. The vertebral arteries were evaluated for gross patency and flow direction. Report prepared by PORTIA Jones FINDINGS: RIGHT CAROTID ARTERIES: 1. Common Carotid Artery: No significant focal plaque formation of the right common carotid artery. Maximum Peak Systolic velocity: 74 cm/sec: End-diastolic velocity 15 cm/sec. 2. Carotid Bifurcation: plaque formation. Maximum Peak Systolic velocity: 64 cm/sec: End-diastolic velocity 10 cm/sec. 3. Internal Carotid Artery: Plaque description: 3.1. Proximal Segment: Peak systolic velocity 85 cm/sec: End-diastolic velocity 24 cm/sec - % stenosis 0-15% 3.2. Middle Segment: Peak systolic velocity 50 cm/sec: End-diastolic velocity 12 cm/sec - % stenosis 0-15% 3.3. Distal Segment: Peak systolic velocity 51 cm/sec: End-diastolic velocity 15 cm/sec - % stenosis 0-15% 4. External Carotid Artery: No significant focal plaque formation. Peak systolic velocity 116 cm/sec 5. ICA/CCA Ratio: 1.1 LEFT CAROTID ARTERIES: 1. Common Carotid Artery: No significant focal plaque formation of the left common carotid artery. Maximum Peak Systolic velocity: 80 cm/sec: End-diastolic velocity 12 cm/sec. 2. Carotid Bifurcation: plaque formation. Maximum Peak Systolic velocity: 56 cm/sec: End-diastolic velocity 8 cm/sec. 3. Internal Carotid Artery: Plaque description: 3.1. Proximal Segment: Peak systolic velocity 81 cm/sec: End-diastolic velocity 19 cm/sec - % stenosis 0-15% 3.2. Middle Segment: Peak systolic velocity 59 cm/sec: End-diastolic velocity 11 cm/sec - % stenosis 0-15% 3.3. Distal Segment: Peak systolic velocity 68 cm/sec: End-diastolic velocity 21 cm/sec - % stenosis 0-15% 4. External Carotid Artery: No significant focal plaque formation. Peak systolic velocity 77 cm/sec 5. ICA/CCA Ratio: 1.0 VERTEBRAL ARTERIES: 1. Right Vertebral Artery: The right vertebral artery flow direction is antegrade. 2. Left Vertebral Artery: The left vertebral artery flow direction is antegrade. OTHER FINDINGS: 1. Right Brachial Blood pressure: 110 mmHg. 2. Left Brachial Blood pressure: 110 mmHg. 3. No atherosclerotic calcification present IMPRESSION: RIGHT: Duplex scan does not suggest hemodynamically significant stenosis of the right extracranial carotid arteries. LEFT: Duplex scan does not suggest hemodynamically significant stenosis of the left extracranial carotid arteries.
[2018-10-07] MEDS: Apap-Butalbital-Caffeine 325-50-40mg Tab PO SCH ×2 (15:02→17:14)
[2018-10-08] MEDS: Apap-Butalbital-Caffeine 325-50-40mg Tab PO SCH ×3 (01:00→17:21)
--- NOTE | 2018-10-08 07:05 | PN ---
DATE: 10/07/2018 TIME OF EVALUATION: 06:50 a.m. NEUROLOGICAL PROBLEM: Syncopal attack. PHYSICAL EXAMINATION: VITAL SIGNS: Blood pressure 129/53, mean arterial pressure of 78, respiratory rate 18, pulse rate 59, temperature 98.1 degrees Fahrenheit. GENERAL: The patient is awake, alert, no new symptoms. No new syncopal episodes since he has been admitted. His examination, which is unchanged compared with previous examination. DIAGNOSTIC DATA: His recent MRI of the brain showed small vessel disease. No acute process noted. Electroencephalogram reviewed by me showed diffuse slow activities without any paroxysmal activities. RECOMMENDATIONS: Continue the present management. Neurologically, the patient is stable. The patient apparently in need of further neurological followup as outpatient. May be he needs ambulatory electroencephalogram, which can be done as outpatient for longer period to record his electrical activities of the brain to rule out any paroxysmal activities. The current study is not sufficient just to rule in or rule out seizures. The patient will be followed by me as outpatient. Bruno Ireland MD BAILEE
--- NOTE | 2018-10-08 07:44 | CP.PCM.PN ---
Subjective - Date & Time of Evaluation Date of Evaluation: 10/06/18 Time of Evaluation: 08:00 - Subjective Subjective: seen by GI pending PSA markedly elevated- eval pending Neuro - pending re: syncope eval Objective - Vital Signs/Intake and Output Vital Signs (last 24 hours): Temp Pulse Resp BP Pulse Ox 98.2 F 55 L 20 115/67 99 10/08/18 06:01 10/08/18 06:01 10/08/18 06:01 10/08/18 06:01 10/08/18 06:01 - Medications Medications: Current Medications Acetaminophen/Butalbital/Caffeine (Fioricet) 1 tab PO Q6 [facility] Last Admin: 10/08/18 06:02 Dose: Not Given Aspirin (Ecotrin) 81 mg PO DAILY [facility] Last Admin: 10/07/18 10:52 Dose: Not Given Dextrose (Dextrose 50% Inj) 0 ml IV STAT PRN; Protocol PRN Reason: Hypoglycemia Protocol Dextrose (Glutose 15) 0 gm PO ONCE PRN; Protocol PRN Reason: Hypoglycemia Protocol Finasteride (Proscar) 5 mg PO DAILY [facility] Last Admin: 10/07/18 11:02 Dose: 5 mg Glucagon (Glucagen Diagnostic Kit) 0 mg IM STAT PRN; Protocol PRN Reason: Hypoglycemia Protocol Insulin Aspart (Novolog) 0 unit SC ACHS [facility]; Protocol Last Admin: 10/07/18 22:36 Dose: 2 units Rosuvastatin Calcium (Crestor) 10 mg PO HS [facility] Last Admin: 10/07/18 22:36 Dose: 10 mg Tamsulosin HCl (Flomax) 0.4 mg PO DAILY [facility] Last Admin: 10/07/18 11:02 Dose: 0.4 mg - Labs Labs: 10/02/18 14:34 10/03/18 11:41 PT 12.1 SECONDS (9.7-12.2) 10/02/18 14:34 INR 1.1 10/02/18 14:34 APTT 29 SECONDS (21-34) 10/02/18 14:34 - Constitutional Appears: Non-toxic - Eye Exam Eye Exam: absent: Scleral icterus - Neck Exam Neck Exam: Full ROM - Respiratory Exam Respiratory Exam: NORMAL BREATHING PATTERN - Cardiovascular Exam Cardiovascular Exam: REGULAR RHYTHM - GI/Abdominal Exam GI & Abdominal Exam: Soft. absent: Tenderness - Extremities Exam Extremities Exam: absent: Pedal Edema Assessment and Plan - Assessment and Plan (Free Text) Assessment: Syncope Pelvic mass Elevated PSA CAD, stable Plan: For bx of pelvic mass and PSA
--- NOTE | 2018-10-08 07:50 | CP.PCM.PN ---
Subjective - Date & Time of Evaluation Date of Evaluation: 10/07/18 Time of Evaluation: 09:00 - Subjective Subjective: seen by Dr Lopez, Dr Leung Pt evaluated by Dr Ireland and Dr Villareal Pt is scheduled for bx of prostate and pelvic mass Echo-nL LV systolic function; no significant valvular stenosis or regurgitation Objective - Vital Signs/Intake and Output Vital Signs (last 24 hours): Temp Pulse Resp BP Pulse Ox 98.2 F 55 L 20 115/67 99 10/08/18 06:01 10/08/18 06:01 10/08/18 06:01 10/08/18 06:01 10/08/18 06:01 - Medications Medications: Current Medications Acetaminophen/Butalbital/Caffeine (Fioricet) 1 tab PO Q6 [facility] Last Admin: 10/08/18 06:02 Dose: Not Given Aspirin (Ecotrin) 81 mg PO DAILY [facility] Last Admin: 10/07/18 10:52 Dose: Not Given Dextrose (Dextrose 50% Inj) 0 ml IV STAT PRN; Protocol PRN Reason: Hypoglycemia Protocol Dextrose (Glutose 15) 0 gm PO ONCE PRN; Protocol PRN Reason: Hypoglycemia Protocol Finasteride (Proscar) 5 mg PO DAILY [facility] Last Admin: 10/07/18 11:02 Dose: 5 mg Glucagon (Glucagen Diagnostic Kit) 0 mg IM STAT PRN; Protocol PRN Reason: Hypoglycemia Protocol Insulin Aspart (Novolog) 0 unit SC ACHS [facility]; Protocol Last Admin: 10/07/18 22:36 Dose: 2 units Rosuvastatin Calcium (Crestor) 10 mg PO HS [facility] Last Admin: 10/07/18 22:36 Dose: 10 mg Tamsulosin HCl (Flomax) 0.4 mg PO DAILY [facility] Last Admin: 10/07/18 11:02 Dose: 0.4 mg - Labs Labs: 10/02/18 14:34 10/03/18 11:41 PT 12.1 SECONDS (9.7-12.2) 10/02/18 14:34 INR 1.1 10/02/18 14:34 APTT 29 SECONDS (21-34) 10/02/18 14:34 - Constitutional Appears: Non-toxic - Head Exam Head Exam: NORMAL INSPECTION - ENT Exam ENT Exam: Mucous Membranes Moist - Neck Exam Neck Exam: Full ROM - Respiratory Exam Respiratory Exam: Clear to Ausculation Bilateral - Cardiovascular Exam Cardiovascular Exam: REGULAR RHYTHM - GI/Abdominal Exam GI & Abdominal Exam: Soft. absent: Tenderness - Rectal Exam Rectal Exam: NORMAL INSPECTION - Exam Exam: NORMAL INSPECTION - Extremities Exam Extremities Exam: absent: Pedal Edema - Neurological Exam Neurological Exam: Alert, Oriented x3 Assessment and Plan - Assessment and Plan (Free Text) Assessment: Pelvic mass Elevated PSA AAA CAD Plan: Recurrent syncope-may benefit from Loop recorder Tilt table test - after biopsies
[2018-10-08] MEDS: (Novolog) Insulin Aspart, Recombinant 100 u/ml 10 ml vial SC SCH ×3 (07:58→22:26)
--- NOTE | 2018-10-08 09:51 | CP.PCM.PN ---
Subjective - Date & Time of Evaluation Date of Evaluation: 10/08/18 Time of Evaluation: 09:00 - Subjective Subjective: Pt came down to holding area for [facility] prostate biopsy. As per Dr Carrasco's note from today patient needs a tilt test and loop recorder as a workup for reccurent syncope. Case was discussed with Dr Leung and this is an elective surgery to r/o prostate cancer, mutual decision was made to wait for these tests to be done and then proceed with surgery in the next few days. Also spoke to Dr Carrasco regarding loop recorder, since this can potentially take weeks, I would recommend EP evaluation to see if short term Holter of any benefit. In the mean time tilt test can be performed. We will follow the patient closely and follow EP recommendations. Objective - Vital Signs/Intake and Output Vital Signs (last 24 hours): Temp Pulse Resp BP Pulse Ox 98.8 F 59 L 20 116/65 97 10/08/18 07:00 10/08/18 07:00 10/08/18 07:00 10/08/18 07:00 10/08/18 07:00 - Medications Medications: Current Medications Acetaminophen/Butalbital/Caffeine (Fioricet) 1 tab PO Q6 [facility] Last Admin: 10/08/18 06:02 Dose: Not Given Aspirin (Ecotrin) 81 mg PO DAILY [facility] Last Admin: 10/07/18 10:52 Dose: Not Given Dextrose (Dextrose 50% Inj) 0 ml IV STAT PRN; Protocol PRN Reason: Hypoglycemia Protocol Dextrose (Glutose 15) 0 gm PO ONCE PRN; Protocol PRN Reason: Hypoglycemia Protocol Finasteride (Proscar) 5 mg PO DAILY [facility] Last Admin: 10/07/18 11:02 Dose: 5 mg Glucagon (Glucagen Diagnostic Kit) 0 mg IM STAT PRN; Protocol PRN Reason: Hypoglycemia Protocol Insulin Aspart (Novolog) 0 unit SC ACHS [facility]; Protocol Last Admin: 10/08/18 07:58 Dose: Not Given Rosuvastatin Calcium (Crestor) 10 mg PO HS [facility] Last Admin: 10/07/18 22:36 Dose: 10 mg Tamsulosin HCl (Flomax) 0.4 mg PO DAILY [facility] Last Admin: 10/07/18 11:02 Dose: 0.4 mg - Labs Labs: 10/02/18 14:34 04/05/19 11:41 PT 12.1 SECONDS (9.7-12.2) 10/02/18 14:34 INR 1.1 10/02/18 14:34 APTT 29 SECONDS (21-34) 10/02/18 14:34
--- NOTE | 2018-10-08 10:07 | PCM.URO ---
Urology Progress Note - General General: No Complaints - Subjective Abdominal Pain: No Voiding Well: No (slow stream, no change) Hematuria: No Dsypnea: No Chest Pain: No Fever & Chills: No - Objective Lab Results Last 24 Hours: Laboratory Results - last 24 hr 10/06/18 10/07/18 10/08/18 06:02 11:48 06:04 POC Glucose (mg/dL) 252 H 272 H Ionized Calcium 5.4 10/08/18 09:02 POC Glucose (mg/dL) 282 H Ionized Calcium Intake & Output: Intake & Output 10/07/18 10/08/18 10/08/18 18:59 06:59 18:59 Intake Total 480 Balance 480 Intake: Oral 480 Other: # Voids Urine, Voided 3 # Bowel Movements 0 Vital Signs: Vital Signs - 24 hr 10/07/18 10/07/18 10/07/18 15:12 15:35 23:10 Temperature 98.1 F 98.1 F Pulse Rate 67 68 65 Respiratory 18 20 Rate Blood Pressure 105/53 L 131/66 O2 Sat by Pulse 97 98 Oximetry 10/07/18 10/08/18 10/08/18 23:50 03:37 06:01 Temperature 98.2 F Pulse Rate 64 56 L 55 L Respiratory 20 Rate Blood Pressure 115/67 O2 Sat by Pulse 99 Oximetry 10/08/18 07:00 Temperature 98.8 F Pulse Rate 59 L Respiratory 20 Rate Blood Pressure 116/65 O2 Sat by Pulse 97 Oximetry - Physical Exam Abdominal Exam: Soft, Non-Tender, Non-Distended Back: No CVA Tenderness - Plan Additional Information: IMP: elevated PSA. voiding dysfunction. enlarged prostate. rec/p: for pus and bx, when okayed by anesthesiologist and property man. discussed w pt. - Date & Time of Note Date: 10/08/18 Time: 09:30
--- NOTE | 2018-10-08 21:44 | CP.PCM.CON ---
History of Present Illness - History of Present Illness History of Present Illness: 78M with PMHx of HTN, DM, HLD, AAA, BPH admitted to hospital for hypomagnesemia. General surgery consulted for evaluation of AAA and abdominal mass. As per medical records patient had outpatient CT Abd&Pel which demonstrated AAA and a retroperitoneal mass. At time of examination patient denied fever/chills, chest pain/SOB, nausea/vomiting/diarrhea, abdominal pain, dysuria. He is c/o pain in many bones, unable to pin point a specific area. He is ambulatory, denies any weakness. Ultrasound done at showed dilatation of the CBD but no obvious mass. He has chronic constipation, firm bowel movements every three days. He also reports losing 60 pounds over the past three years.Colonoscopy was performed by Dr. Whitehead 12/21/2015 and showed internal hemorrhoids and a hyperplastic polyp. EGD showed gastritis secondary to H pylori infection. He is scheduled for a biopsy of the Rt. retroperitoneal mass. The labs revealed an elevated PSA of 186, he is also to be scheduled for a prostate biopsy. PMHx: HTN, DM, HLD, AAA, BPH Past Patient History - Past Medical History & Family History Past Medical History?: Yes - Past Social History Smoking Status: Former Smoker - CARDIAC Hx Hypercholesterolemia: Yes Hx Hypertension: Yes - PULMONARY Hx Respiratory Disorders: No - NEUROLOGICAL Hx Alzheimer's Disease: Yes - HEENT Hx HEENT Problems: Yes Hx Cataracts: Yes (CATARACT REMOVAL 2 YRS AGO) - RENAL Hx Chronic Kidney Disease: No - ENDOCRINE/METABOLIC Hx Diabetes Mellitus Type 2: Yes - HEMATOLOGICAL/ONCOLOGICAL Hx Blood Transfusions: No Hx Blood Transfusion Reaction: No - INTEGUMENTARY Hx Dermatological Problems: No - MUSCULOSKELETAL/RHEUMATOLOGICAL Hx Falls: No Hx Fractures: Yes (HAND CASTED) - GASTROINTESTINAL Hx Gastritis: Yes - GENITOURINARY/GYNECOLOGICAL Hx Genitourinary Disorders: Yes Hx Prostate Problems: Yes - PSYCHIATRIC Hx Substance Use: No - SURGICAL HISTORY Hx Surgeries: Yes Hx Herniorrhaphy: Yes Other/Comment: cardiac stents x4 - ANESTHESIA Hx Anesthesia: Yes Hx Anesthesia Reactions: No Hx Malignant Hyperthermia: No Meds Allergies/Adverse Reactions: Allergies Allergy/AdvReac Type Severity Reaction Status Date / Time No Known Allergies Allergy Verified 10/02/18 13:13 - Medications Medications: Current Medications Acetaminophen/Butalbital/Caffeine (Fioricet) 1 tab PO Q6 [facility] Last Admin: 10/08/18 17:21 Dose: 1 tab Aspirin (Ecotrin) 81 mg PO DAILY [facility] Last Admin: 10/07/18 10:52 Dose: Not Given Dextrose (Dextrose 50% Inj) 0 ml IV STAT PRN; Protocol PRN Reason: Hypoglycemia Protocol Dextrose (Glutose 15) 0 gm PO ONCE PRN; Protocol PRN Reason: Hypoglycemia Protocol Finasteride (Proscar) 5 mg PO DAILY [facility] Last Admin: 10/08/18 10:13 Dose: 5 mg Glucagon (Glucagen Diagnostic Kit) 0 mg IM STAT PRN; Protocol PRN Reason: Hypoglycemia Protocol Insulin Aspart (Novolog) 0 unit SC ACHS [facility]; Protocol Last Admin: 10/08/18 17:22 Dose: 8 units Rosuvastatin Calcium (Crestor) 10 mg PO HS [facility] Last Admin: 10/07/18 22:36 Dose: 10 mg Tamsulosin HCl (Flomax) 0.4 mg PO DAILY [facility] Last Admin: 10/08/18 10:13 Dose: 0.4 mg Results - Vital Signs Recent Vital Signs: Last Vital Signs Temp 98.3 F 10/08/18 15:35 Pulse 67 10/08/18 15:35 Resp 18 10/08/18 15:35 BP 153/65 H 10/08/18 15:35 Pulse Ox 99 10/08/18 15:35 - Labs Result Diagrams: 10/02/18 14:34 10/03/18 11:41 Labs: Laboratory Results - last 24 hr 10/08/18 10/08/18 10/08/18 06:04 09:02 16:31 POC Glucose (mg/dL) 272 H 282 H 398 H Assessment & Plan (1) Retroperitoneal mass Assessment and Plan: 78 yo man with an elevated PSA with a retroperitoneal mass, also other intraabdominal LN. R/o malignancy,? prostate primary. Will check LDH, Bone scan. The family is aware of this possibility and are anxious to get both biopsies done. The patient would like to go home after the testing. The family will call after 2 days ( earlt next week for results ) Status: Acute
--- NOTE | 2018-10-08 23:59 | CP.PCM.CON ---
History of Present Illness - History of Present Illness History of Present Illness: Cardiac-Electrophysiology Note Re: syncope Chart/imaging reviewed Patient seen and examined Admitted for evaluation of an abdominal mass and abdominal aortic aneurysm @ weeks prior to admission he had an episode of fall at ~ 12 PM while moving to pick a bottle of pills; he felt weak in the leg fell BUT did not lose consciousness He denied nausea vomiting blurred vision, vertigo, chest pain palpitations diaphoresis shortness of breath He got up and continued doing his work The symptom did not recur Past medical history significant for systemic hypertension diabetes mellitus hyperlipidemia coronary disease Exam AFebrile Normal venous pressures Normal carotids No goiter Normal heart sounds No murmurs No edema EKG: sinus rhythm; normal QTc Echo: reviewed: normal LV and RV systolic function; aortic sclerosis Labs: noted Mr. Arias has a single episode of a fall without loss of consciousness suggestive of a mechanical fall Even assuming a hemodynamic event there is no setting or a concern for sustained arrhythmias or a mechanical cardiac obstruction; postural hypotension/Hypoglycemia remains as unlikely possibilities; the mildly low magnesium at admission was inconsequential @ this point there is no immediate Cardiac/EP intervention warranted Suggest Fall precautions DW patient issues prognosis and life style changes DW Dr. Carrasco Past Patient History - Past Medical History & Family History Past Medical History?: Yes - Past Social History Smoking Status: Former Smoker - CARDIAC Hx Hypercholesterolemia: Yes Hx Hypertension: Yes - PULMONARY Hx Respiratory Disorders: No - NEUROLOGICAL Hx Alzheimer's Disease: Yes - HEENT Hx HEENT Problems: Yes Hx Cataracts: Yes (CATARACT REMOVAL 2 YRS AGO) - RENAL Hx Chronic Kidney Disease: No - ENDOCRINE/METABOLIC Hx Diabetes Mellitus Type 2: Yes - HEMATOLOGICAL/ONCOLOGICAL Hx Blood Transfusions: No Hx Blood Transfusion Reaction: No - INTEGUMENTARY Hx Dermatological Problems: No - MUSCULOSKELETAL/RHEUMATOLOGICAL Hx Falls: No Hx Fractures: Yes (HAND CASTED) - GASTROINTESTINAL Hx Gastritis: Yes - GENITOURINARY/GYNECOLOGICAL Hx Genitourinary Disorders: Yes Hx Prostate Problems: Yes - PSYCHIATRIC Hx Substance Use: No - SURGICAL HISTORY Hx Surgeries: Yes Hx Herniorrhaphy: Yes Other/Comment: cardiac stents x4 - ANESTHESIA Hx Anesthesia: Yes Hx Anesthesia Reactions: No Hx Malignant Hyperthermia: No Meds Allergies/Adverse Reactions: Allergies Allergy/AdvReac Type Severity Reaction Status Date / Time No Known Allergies Allergy Verified 10/02/18 13:13 - Medications Medications: Current Medications Acetaminophen/Butalbital/Caffeine (Fioricet) 1 tab PO Q6 [facility] Last Admin: 10/08/18 17:21 Dose: 1 tab Aspirin (Ecotrin) 81 mg PO DAILY [facility] Last Admin: 10/07/18 10:52 Dose: Not Given Dextrose (Dextrose 50% Inj) 0 ml IV STAT PRN; Protocol PRN Reason: Hypoglycemia Protocol Dextrose (Glutose 15) 0 gm PO ONCE PRN; Protocol PRN Reason: Hypoglycemia Protocol Finasteride (Proscar) 5 mg PO DAILY [facility] Last Admin: 10/08/18 10:13 Dose: 5 mg Glucagon (Glucagen Diagnostic Kit) 0 mg IM STAT PRN; Protocol PRN Reason: Hypoglycemia Protocol Insulin Aspart (Novolog) 0 unit SC ACHS [facility]; Protocol Last Admin: 10/08/18 22:26 Dose: Not Given Rosuvastatin Calcium (Crestor) 10 mg PO HS [facility] Last Admin: 10/08/18 22:25 Dose: 10 mg Tamsulosin HCl (Flomax) 0.4 mg PO DAILY [facility] Last Admin: 10/08/18 10:13 Dose: 0.4 mg Results - Vital Signs Recent Vital Signs: Last Vital Signs Temp 98.3 F 10/08/18 15:35 Pulse 67 10/08/18 15:35 Resp 18 10/08/18 15:35 BP 153/65 H 10/08/18 15:35 Pulse Ox 99 10/08/18 15:35 - Labs Result Diagrams: 10/02/18 14:34 10/03/18 11:41 Labs: Laboratory Results - last 24 hr 10/08/18 10/08/18 10/08/18 06:04 09:02 16:31 POC Glucose (mg/dL) 272 H 282 H 398 H
[2018-10-09] MEDS: Apap-Butalbital-Caffeine 325-50-40mg Tab PO SCH ×3 (00:12→17:39)
--- NOTE | 2018-10-09 06:33 | CON ---
DATE: 10/06/2018 UROLOGY CONSULTATION REQUESTED BY: Shell Carrasco MD FILLED BY: Katiuska Leung MD REASON FOR CONSULTATION: Elevated PSA. HISTORY OF PRESENT ILLNESS: The patient is a 78-year-old male with elevated PSA. The patient is in, otherwise, fair health. The patient was admitted with an abdominal mass and an aortic aneurysm. The patient was evaluated as an outpatient. He had a CAT scan which demonstrated abdominal aortic aneurysm. The patient was also found to have right-sided pelvic mass. The patient reports significant voiding dysfunction. The patient has poor urinary stream. He has urinary frequency. Nocturia x3. No hematuria. No fever or rigors. No flank pain. The patient has had decreased appetite. He reports a 15-pound weight loss over the past year. The patient reports no recent fever or rigors. No nausea or vomiting. No incontinence. The remainder of the chart is as reviewed. PHYSICAL EXAMINATION: GENERAL: The patient is a well-developed, well-nourished male, appearing his stated age. ABDOMEN: Soft, nontender, nondistended. No mass or organomegaly. BACK: No CVA tenderness. GENITALIA: Without inflammation. RECTAL: Normal sphincter tone. Prostate is enlarged. There is mild induration of the prostate. Prostate is approximately 50 g in size without fixation or nodularity. LABORATORY DATA: Reviewed. Serum PSA is 188. CAT scan is reviewed as well. IMPRESSION: A 78-year-old male with elevated prostate-specific antigen. Differential diagnoses of elevated prostate-specific antigen include prostatic hypertrophy, inflammation, and/or prostate carcinoma. A prostate-specific antigen of this degree of elevation suggests metastatic disease. Also noted on CAT scan is the pelvic mass on the right side involving the pelvic sidewall. Also noted is the abdominal aortic aneurysm. PLAN/RECOMMENDATIONS: I will discuss with the patient and with you regarding further urologic evaluation. I would repeat the serum PSA. I would also recommend prostate ultrasound and biopsy. The patient may be scheduled for a biopsy of the abdominal mass, as well. The patient also requires evaluation regarding his aortic aneurysm. Further therapy to follow according to the patient's clinical course. I recommend obtaining urinalysis and urine culture as well. Voiding symptoms may need to be treated as well. Further therapy to follow according to the patient's clinical course. Coordination of the care of the various problems by the various specialists are to follow. Thank you for recommending the patient for urology consultation. Katiuska MD Xochitl cc: Shell Carrasco MD
[2018-10-09] MEDS: (Novolog) Insulin Aspart, Recombinant 100 u/ml 10 ml vial SC SCH ×4 (09:16→21:19)
--- NOTE | 2018-10-09 11:02 | CP.PCM.PN ---
Subjective - Date & Time of Evaluation Date of Evaluation: 10/09/18 Time of Evaluation: 11:02 - Subjective Subjective: Clinically no change spoke with son and explained the delay Dr Cameron saw the patient last night 3 cardiologists cleared the patient for prostate biopsy and LN biopsy Objective - Vital Signs/Intake and Output Vital Signs (last 24 hours): Temp Pulse Resp BP Pulse Ox 98.6 F 53 L 20 131/68 98 10/09/18 07:00 10/09/18 07:00 10/09/18 07:00 10/09/18 07:00 10/09/18 07:00 - Medications Medications: Current Medications Acetaminophen/Butalbital/Caffeine (Fioricet) 1 tab PO Q6 [facility] Last Admin: 10/09/18 00:12 Dose: Not Given Aspirin (Ecotrin) 81 mg PO DAILY [facility] Last Admin: 10/07/18 10:52 Dose: Not Given Dextrose (Dextrose 50% Inj) 0 ml IV STAT PRN; Protocol PRN Reason: Hypoglycemia Protocol Dextrose (Glutose 15) 0 gm PO ONCE PRN; Protocol PRN Reason: Hypoglycemia Protocol Finasteride (Proscar) 5 mg PO DAILY [facility] Last Admin: 10/09/18 09:16 Dose: 5 mg Glucagon (Glucagen Diagnostic Kit) 0 mg IM STAT PRN; Protocol PRN Reason: Hypoglycemia Protocol Insulin Aspart (Novolog) 0 unit SC ACHS [facility]; Protocol Last Admin: 10/09/18 09:16 Dose: 3 units Rosuvastatin Calcium (Crestor) 10 mg PO HS [facility] Last Admin: 10/08/18 22:25 Dose: 10 mg Tamsulosin HCl (Flomax) 0.4 mg PO DAILY [facility] Last Admin: 10/09/18 09:16 Dose: 0.4 mg - Labs Labs: 10/02/18 14:34 10/03/18 11:41 PT 12.1 SECONDS (9.7-12.2) 10/02/18 14:34 INR 1.1 10/02/18 14:34 APTT 29 SECONDS (21-34) 10/02/18 14:34 - Constitutional Appears: Non-toxic - Head Exam Head Exam: NORMAL INSPECTION - Eye Exam Eye Exam: Scleral icterus - ENT Exam ENT Exam: Mucous Membranes Moist - Neck Exam Neck Exam: Full ROM - Respiratory Exam Respiratory Exam: NORMAL BREATHING PATTERN - Cardiovascular Exam Cardiovascular Exam: REGULAR RHYTHM - GI/Abdominal Exam GI & Abdominal Exam: Soft - Extremities Exam Extremities Exam: absent: Pedal Edema - Neurological Exam Neurological Exam: Alert Assessment and Plan - Assessment and Plan (Free Text) Assessment: Elevated PSA AAA CAD Hx of syncope Plan: Bone scan today Prostate in AM
--- NOTE | 2018-10-09 11:17 | CP.PCM.PN ---
Subjective - Date & Time of Evaluation Date of Evaluation: 10/08/18 Time of Evaluation: 12:00 - Subjective Subjective: Anesthesia cancelled surgery requesting EP to clear patient Spoke with Dr Esparza - cleared pt for prostate bx Objective - Vital Signs/Intake and Output Vital Signs (last 24 hours): Temp Pulse Resp BP Pulse Ox 98.6 F 53 L 20 131/68 98 10/09/18 07:00 10/09/18 07:00 10/09/18 07:00 10/09/18 07:00 10/09/18 07:00 - Medications Medications: Current Medications Acetaminophen/Butalbital/Caffeine (Fioricet) 1 tab PO Q6 [facility] Last Admin: 10/09/18 00:12 Dose: Not Given Aspirin (Ecotrin) 81 mg PO DAILY [facility] Last Admin: 10/07/18 10:52 Dose: Not Given Dextrose (Dextrose 50% Inj) 0 ml IV STAT PRN; Protocol PRN Reason: Hypoglycemia Protocol Dextrose (Glutose 15) 0 gm PO ONCE PRN; Protocol PRN Reason: Hypoglycemia Protocol Finasteride (Proscar) 5 mg PO DAILY [facility] Last Admin: 10/09/18 09:16 Dose: 5 mg Glucagon (Glucagen Diagnostic Kit) 0 mg IM STAT PRN; Protocol PRN Reason: Hypoglycemia Protocol Insulin Aspart (Novolog) 0 unit SC ACHS [facility]; Protocol Last Admin: 10/09/18 09:16 Dose: 3 units Rosuvastatin Calcium (Crestor) 10 mg PO HS [facility] Last Admin: 10/08/18 22:25 Dose: 10 mg Tamsulosin HCl (Flomax) 0.4 mg PO DAILY [facility] Last Admin: 10/09/18 09:16 Dose: 0.4 mg - Labs Labs: 10/02/18 14:34 10/03/18 11:41 PT 12.1 SECONDS (9.7-12.2) 10/02/18 14:34 INR 1.1 10/02/18 14:34 APTT 29 SECONDS (21-34) 10/02/18 14:34 - Constitutional Appears: Non-toxic - Head Exam Head Exam: NORMAL INSPECTION - Eye Exam Pupil Exam: PERRL - ENT Exam ENT Exam: Mucous Membranes Dry - Neck Exam Neck Exam: Full ROM - Respiratory Exam Respiratory Exam: NORMAL BREATHING PATTERN - Cardiovascular Exam Cardiovascular Exam: REGULAR RHYTHM - GI/Abdominal Exam GI & Abdominal Exam: Soft - Extremities Exam Extremities Exam: Full ROM, Pedal Edema - Neurological Exam Neurological Exam: Alert Assessment and Plan - Assessment and Plan (Free Text) Assessment: r/o Prostate ca Lymphadenopathy CAD AAA Syncope Plan: Discussed with patient at length about the plan Dr Cameron will see pat sometime today Dr Leung to re-sked patient
--- NOTE | 2018-10-09 14:59 | NM ---
Date of service: 10/09/2018 PROCEDURE: Whole Body Bone Scan HISTORY: r/o bone mets COMPARISON: None available. TECHNIQUE: Following administration of 24.9 miCu of Tc MDP multiplanar whole body images were obtained. FINDINGS: Evidence for bony metastatic disease: Asymmetric increased uptake left glenoid. Suspicious finding in posterior and medial aspect right 7th rib. Suspicious finding inter trochanteric region proximal left femur. Degenerative uptake: Lumbar spine, right knee. Physiologic uptake: Normal physiologic activity in the kidneys. Other findings: Presumed posttraumatic changes contiguous anterior left ribs. IMPRESSION: Suspicious findings left shoulder, right 7th rib and proximal left femur. Indeterminate, likely degenerative changes lumbar spine. Degenerative findings right knee. Posttraumatic changes presumed to account for findings in the anterior and lateral left ribs.
[2018-10-09 17:00] LABS: HEMOGLOBIN 12.4 g/dL (12.0-18.0); MEAN CELL VOLUME 86.7 fL (80.0-94.0); MEAN CORPUSCULAR HGB CONC 33.4 g/dL (33.0-37.0); MEAN PLATELET VOLUME 8.9 fL (7.2-11.7); RBC 4.28 Mil/uL (4.40-5.90); RED CELL DISTRIBUTION WIDTH 14.4 % (11.5-14.5); WHITE BLOOD COUNT 6.8 K/uL (4.8-10.8)
[2018-10-09 17:23] LABS: BLOOD UREA NITROGEN 22 mg/dL (9-20); CALCIUM 9.5 mg/dl (8.6-10.4); GFR NON-AFRICAN AMERICAN 58
[2018-10-10] MEDS: (Novolog) Insulin Aspart, Recombinant 100 u/ml 10 ml vial SC SCH ×3 (08:36→17:00)
[2018-10-10] MEDS ORDERED: cefTRIAXone 1 gm 1 GM/100 ML BAG IVPB ONE (09:54)
[2018-10-10] MEDS ORDERED: Lidocaine 2% Jelly (Uro-Jet) ONE (09:54)
[2018-10-10] MEDS ORDERED: Propofol 10 mg/ml Inj (20 ML) ONE (09:59)
[2018-10-10] MEDS ORDERED: Gentamicin 80 mg in 0.9% NS 160 MG/200 ML BAG IVPB ONE (10:10)
[2018-10-10] MEDS ORDERED: Lidocaine Hydrochloride 10 ML INJ ONE (10:10)
[2018-10-10] MEDS ORDERED: HYDROmorphone 0.5 mg/0.5 ml ISec IVP PRN (11:00)
--- NOTE | 2018-10-10 11:30 | PCM.SURG1 ---
Surgeon's Initial Post Op Note - Surgeon's Notes Surgeon: Leigh Leung [employer] Developer: none Type of Anesthesia: IV Sedation Pre-Operative Diagnosis: elevated psa Operative Findings: same Post-Operative Diagnosis: same Operation Performed: pus,prostate bx Specimen/Specimens Removed: prostate bx, 12 core, sextant Estimated Blood Loss: EBL {In ML}: 0 Blood Products Given: N/A Drains Used: No Drains Post-Op Condition: Good Date of Surgery/Procedure: 10/10/18 Time of Surgery/Procedure: 11:05
--- NOTE | 2018-10-10 12:37 | US ---
Date of service: 10/10/2018 PROCEDURE: Ultrasound guidance intraoperatively of for prostate biopsy HISTORY: PT. SCHEDULED FOR PROSTATE ULTRASOUND AND BIOPSY COMPARISON: None TECHNIQUE: Standard protocol for this study/examination. FINDINGS: Ultrasound guidance provided for the referring urologist. IMPRESSION: Prostate biopsy performed with ultrasound guidance.
[2018-10-10] MEDS: Apap-Butalbital-Caffeine 325-50-40mg Tab PO SCH (13:18)
[2018-10-10 15:31] VITALS: BP 118/51; PULSE 54; RESP 18; TEMP 97.6; O2SAT 100
--- NOTE | 2018-10-10 18:29 | CP.PCM.PN ---
Subjective - Date & Time of Evaluation Date of Evaluation: 10/10/18 Time of Evaluation: 07:00 - Subjective Subjective: comfortable nad \ no fever or chills Objective - Vital Signs/Intake and Output Vital Signs (last 24 hours): Temp Pulse Resp BP Pulse Ox 97.6 F 54 L 18 118/51 L 100 10/10/18 11:45 10/10/18 11:45 10/10/18 11:45 10/10/18 11:45 10/10/18 11:45 Intake and Output: 10/10/18 10/10/18 06:59 18:59 Intake Total 300 Balance 300 - Medications Medications: Current Medications Acetaminophen/Butalbital/Caffeine (Fioricet) 1 tab PO Q6 [facility] Last Admin: 10/10/18 13:18 Dose: 1 tab Aspirin (Ecotrin) 81 mg PO DAILY [facility] Last Admin: 10/07/18 10:52 Dose: Not Given Ciprofloxacin (Cipro) 500 mg PO BID [facility]; Protocol Last Admin: 10/10/18 17:26 Dose: 500 mg Dextrose (Dextrose 50% Inj) 0 ml IV STAT PRN; Protocol PRN Reason: Hypoglycemia Protocol Dextrose (Glutose 15) 0 gm PO ONCE PRN; Protocol PRN Reason: Hypoglycemia Protocol Finasteride (Proscar) 5 mg PO DAILY [facility] Last Admin: 10/10/18 13:18 Dose: 5 mg Glucagon (Glucagen Diagnostic Kit) 0 mg IM STAT PRN; Protocol PRN Reason: Hypoglycemia Protocol Insulin Aspart (Novolog) 0 unit SC [facility]; Protocol Last Admin: 10/10/18 17:00 Dose: 4 units Rosuvastatin Calcium (Crestor) 10 mg PO HS [facility] Last Admin: 10/09/18 21:20 Dose: 10 mg Tamsulosin HCl (Flomax) 0.4 mg PO DAILY [facility] Last Admin: 10/10/18 13:17 Dose: 0.4 mg - Labs Labs: 10/09/18 16:54 10/09/18 16:54 PT 12.1 SECONDS (9.7-12.2) 10/02/18 14:34 INR 1.1 10/02/18 14:34 APTT 29 SECONDS (21-34) 10/02/18 14:34 - Constitutional Appears: Non-toxic, Chronically Ill - Head Exam Head Exam: NORMOCEPHALIC - Eye Exam Eye Exam: absent: Scleral icterus - ENT Exam ENT Exam: Mucous Membranes Dry - Neck Exam Neck Exam: absent: Lymphadenopathy - Respiratory Exam Respiratory Exam: Decreased Breath Sounds - Cardiovascular Exam Cardiovascular Exam: REGULAR RHYTHM - GI/Abdominal Exam GI & Abdominal Exam: Distended, Soft - Rectal Exam Rectal Exam: Deferred - Exam Exam: NORMAL INSPECTION - Extremities Exam Extremities Exam: absent: Pedal Edema - Back Exam Back Exam: absent: CVA tenderness (L), CVA tenderness (R) - Neurological Exam Neurological Exam: Alert, Awake, Oriented x3 - Psychiatric Exam Psychiatric exam: Normal Mood - Skin Skin Exam: Dry Assessment and Plan - Assessment and Plan (Free Text) Assessment: 78M with PMHx of HTN, DM, HLD, AAA, BPH admitted to hospital for hypomagnesemia. General surgery consulted for evaluation of AAA and abdominal mass. As per medical records patient had outpatient CT Abd&Pel which demonstrated AAA and a retroperitoneal mass. At time of examination patient denied fever/chills, chest pain/SOB, nausea/vomiting/diarrhea, abdominal pain, dysuria. s/p prostate bx stable for discharge cleared by and GI as well as surgery Plan: bx retroperitoneal mass as out pt
--- NOTE | 2018-10-10 18:32 | CP.PCM.DIS ---
Provider - Provider Date of Admission: 10/05/18 11:29 Attending physician: Shell Carrasco MD Primary care physician: Danilo Consults: 10/02/18 18:30 General Surgery Consult Routine Comment: Consulting Provider: Kenneth Lopez Jr. Consulting Physician: Kenneth Lopez Jr. Reason for Consult: Abdominal Mass 10/03/18 06:17 Physician Consult Routine Comment: Consulting Provider: Red Villareal Consulting Physician: Red Villareal Reason for Consult: retroperitoneal mass 10/03/18 23:39 Cardiology Consult Routine Comment: cardiac consult Consulting Provider: Jelly Esparza Consulting Physician: Jelly Esparza Reason for Consult: cardiac consult 10/04/18 11:24 Physician Consult Routine Comment: Consulting Provider: Christel Xie Consulting Physician: Christel Xie Reason for Consult: lymphadenopathy 10/04/18 14:30 Physician Consult Routine Comment: Consulting Provider: Katiuska Leung Consulting Physician: Katiuska Leung Reason for Consult: r/o prostate ca, urinary incontinence Additional Comments: 10/05/18 20:57 Physician Consult Routine Comment: Consulting Provider: Bruno Ireland Consulting Physician: Bruno Ireland Reason for Consult: syncope 10/07/18 14:11 Physician Consult Routine Comment: Consulting Provider: Hank Alfaro Consulting Physician: Hank Alfaro Reason for Consult: ct guided bx of pelvic node 10/08/18 10:12 Physician Consult Routine Comment: Consulting Provider: Chung Cameron Consulting Physician: Chung Cameron Reason for Consult: Pre-op eval re: syncope Additional Comments: Time Spent in preparation of Discharge (in minutes): 45 Diagnosis - Discharge Diagnosis (1) Prostatic mass Status: Acute (2) AAA (abdominal aortic aneurysm) Status: Acute (3) Hypomagnesemia Status: Acute (4) Retroperitoneal mass Status: Acute (5) CAD (coronary artery disease) Status: Acute (6) Cardiomyopathy Status: Acute (7) Diabetes Status: Acute (8) HTN (hypertension) Status: Acute Hospital Course - Lab Results Lab Results: Micro Results 10/07/18 09:03 Urine,Clean Catch Urine Culture - Final Enterococcus Faecalis Most Recent Lab Values WBC 6.8 K/uL (4.8-10.8) 10/09/18 16:54 RBC 4.28 Mil/uL (4.40-5.90) L 10/09/18 16:54 Hgb 12.4 g/dL (12.0-18.0) 10/09/18 16:54 Hct 37.1 % (35.0-51.0) 10/09/18 16:54 MCV 86.7 fL (80.0-94.0) 10/09/18 16:54 MCH 29.0 pg (27.0-31.0) 10/09/18 16:54 MCHC 33.4 g/dL (33.0-37.0) 10/09/18 16:54 RDW 14.4 % (11.5-14.5) 10/09/18 16:54 Plt Count 183 K/uL (130-400) 10/09/18 16:54 MPV 8.9 fL (7.2-11.7) 10/09/18 16:54 Neut % (Auto) 69.4 % (50.0-75.0) 10/02/18 14:34 Lymph % (Auto) 16.9 % (20.0-40.0) L 10/02/18 14:34 [place] % (Auto) 8.1 % (0.0-10.0) 10/02/18 14:34 Eos % (Auto) 4.7 % (0.0-4.0) H 10/02/18 14:34 Baso % (Auto) 0.9 % (0.0-2.0) 10/02/18 14:34 Neut # (Auto) 4.4 K/uL (1.8-7.0) 10/02/18 14:34 Lymph # (Auto) 1.1 K/uL (1.0-4.3) 10/02/18 14:34 [place] # (Auto) 0.5 K/uL (0.0-0.8) 10/02/18 14:34 Eos # (Auto) 0.3 K/uL (0.0-0.7) 10/02/18 14:34 Baso # (Auto) 0.1 K/uL (0.0-0.2) 10/02/18 14:34 PT 12.1 SECONDS (9.7-12.2) 10/02/18 14:34 INR 1.1 10/02/18 14:34 APTT 29 SECONDS (21-34) 10/02/18 14:34 Sodium 133 mmol/L (132-148) 10/09/18 16:54 Potassium 4.3 mmol/L (3.6-5.2) 10/09/18 16:54 Chloride 97 mmol/L (98-107) L 10/09/18 16:54 Carbon Dioxide 29 mmol/L (22-30) 10/09/18 16:54 Anion Gap 12 (10-20) 10/09/18 16:54 BUN 22 mg/dL (9-20) H 10/09/18 16:54 Creatinine 1.2 mg/dL (0.8-1.5) 10/09/18 16:54 Est GFR ( Amer) > 60 10/09/18 16:54 Est GFR (Non-Af Amer) 58 10/09/18 16:54 POC Glucose (mg/dL) 196 mg/dL (65-110) H 10/10/18 11:03 Random Glucose 305 mg/dL (75-110) H 10/09/18 16:54 Lactic Acid 1.9 mmol/L (0.7-2.1) 10/02/18 14:36 Calcium 9.5 mg/dl (8.6-10.4) 10/09/18 16:54 Ionized Calcium 5.4 mg/dL (4.80-5.60) 10/06/18 06:02 Phosphorus 3.9 mg/dL (2.5-4.5) 10/06/18 06:02 Magnesium 1.7 mg/dL (1.6-2.3) 10/06/18 06:02 Total Bilirubin 0.5 mg/dL (0.2-1.3) 10/02/18 14:34 AST 19 U/L (17-59) 10/02/18 14:34 ALT 12 U/L (21-72) L D 10/02/18 14:34 Alkaline Phosphatase 75 U/L (38-126) 10/02/18 14:34 Total Creatine Kinase 101 U/L (55-170) 10/02/18 14:34 CK-MB (Mass) 0.94 ng/mL (0.0-3.38) 10/02/18 14:34 Troponin I < 0.0120 ng/mL (0.00-0.120) 10/02/18 14:34 Total Protein 7.0 g/dL (6.3-8.3) 10/02/18 14:34 Albumin 4.2 g/dL (3.5-5.0) 10/02/18 14:34 Globulin 2.7 gm/dL (2.2-3.9) 10/02/18 14:34 Albumin/Globulin Ratio 1.5 (1.0-2.1) 10/02/18 14:34 Amylase 54 U/L (30-110) 10/02/18 14:34 Lipase 107 U/L (23-300) 10/02/18 14:34 Prostate Specific Ag 186 ng/mL (0.00-4.0) H 10/04/18 16:28 Free PSA >17.0 ng/mL 10/07/18 07:09 % Free PSA Not calculated % (calc) (>25) 10/07/18 07:09 Total PSA 218.0 ng/mL (< or = 4.0) H 10/07/18 07:09 Prolactin 14.1 ng/mL (3.7-17.9) 10/06/18 06:02 Urine Color Yellow (YELLOW) 10/07/18 09:03 Urine Clarity Clear (Clear) 10/07/18 09:03 Urine pH 6.0 (5.0-8.0) 10/07/18 09:03 Ur Specific [place] 1.015 (1.003-1.030) 10/07/18 09:03 Urine Protein Negative mg/dL (NEGATIVE) 10/07/18 09:03 Urine Glucose (UA) 3+ mg/dL (Normal) H 10/07/18 09:03 Urine Ketones Negative mg/dL (NEGATIVE) 10/07/18 09:03 Urine Blood Negative (NEGATIVE) 10/07/18 09:03 Urine Nitrate Negative (NEGATIVE) 10/07/18 09:03 Urine Bilirubin Negative (NEGATIVE) 10/07/18 09:03 Urine Urobilinogen Normal mg/dL (0.2-1.0) 10/07/18 09:03 Ur Leukocyte Esterase Neg Venessa/uL (Negative) 10/07/18 09:03 Urine WBC (Auto) < 1 /hpf (0-5) 10/07/18 09:03 Urine RBC (Auto) < 1 /hpf (0-3) 10/07/18 09:03 Hyaline Casts 1 /lpf (0-2) 10/02/18 14:34 Discharge Exam - Head Exam Head Exam: ATRAUMATIC, NORMOCEPHALIC - Eye Exam Eye Exam: EOMI, Normal appearance, PERRL Pupil Exam: NORMAL ACCOMODATION, PERRL - ENT Exam ENT Exam: Mucous Membranes Moist - Respiratory Exam Respiratory Exam: Decreased Breath Sounds, Clear to PA & Lateral - Cardiovascular Exam Cardiovascular Exam: REGULAR RHYTHM, +S1, +S2 - GI/Abdominal Exam GI & Abdominal Exam: Diminished Bowel Sounds, Distended, Normal Bowel Sounds - Rectal Exam Rectal Exam: NORMAL INSPECTION - Exam Exam: Circumcision, NORMAL INSPECTION External exam: NORMAL EXTERNAL EXAM Speculum exam: NORMAL SPECULUM EXAM Bimanual exam: NORMAL BIMANUAL EXAM - Neurological Exam Neurological exam: Alert, CN II-XII Intact, Normal Gait, Oriented x3, Reflexes Normal - Psychiatric Exam Psychiatric exam: Normal Affect, Normal Mood - Skin Skin Exam: Dry, Intact, Normal Color, Warm Discharge Plan - Follow Up Plan Condition: FAIR Disposition: HOME/ ROUTINE Patient education suggested?: Yes Instructions: Blood Glucose Monitoring Additional Instructions: follow up with Dr Leung, Dr Lopez, Dr Carrasco
--- NOTE | 2018-10-12 06:08 | OP ---
PROCEDURE DATE: 10/10/2018 PREOPERATIVE DIAGNOSIS: Elevated serum PSA. POSTOPERATIVE DIAGNOSIS: Elevated serum PSA. PROCEDURES: Transrectal prostate ultrasound. Transrectal prostate biopsy. SURGEON: Katiuska Leung MD DESCRIPTION OF PROCEDURE: Perioperative antibiotics were administered. The patient was placed in a lateral decubitus position. The rectum was prepped topically with Betadine solution and lidocaine jelly. Sedation was prepared by the anesthesiologist. Rectal examination was performed. There was noted to be [id number] prostatic enlargement. Prostate was approximately 25 g in size. The prostate was firm. There was no nodularity. There was symmetric firmness bilaterally. The seminal vesicles were normal however. The rectal sphincter was noted to have a constriction. The prostate ultrasound probe was inserted. Prostate was scanned in sagittal and transverse planes. Prostate was measured in 3 dimensions. Prostate volume was calculated. FINDINGS: The prostatic capsule was well defined. There was moderate hetero-echogenicity of the prostate. There were calcifications at the junction to peripheral and transition zones of the prostate. The seminal vesicles were normal bilaterally. There were no dominant hypoechoic nodules. The prostatic length was 4.2 cm, prostatic height was 3.02 cm, and prostatic width was 4.11 cm. Calculated prostatic volume was 27.84 mL. The prostate biopsy was performed under ultrasound control. A 12 core, sextant biopsy was performed. Biopsies were obtained from right and left sides of the prostate including base and the apical sextants of the prostate. Two cores were obtained from each sextant. Biopsies were directed laterally as well as towards any hypoechoic area as well as the parasagittal plane. Following the prostate biopsy, the ultrasound probe was removed. Rectal examination was performed. There was no bleeding noted. The patient tolerated the procedure without complications. Katiuska Leung MD cc: Shell Carrasco MD
== END 2018-10-10 18:43 | disposition home or self-care (01) | DRG 723 ==
LOC: C.ER 12:57 → C.9E 15:11 → C.6T 16:16 → OBSVTOIN 10-05 11:29
PROVIDERS: ADMIT Internal Medicine; ATTEND Internal Medicine
PROC: 0VB07ZX Excision of Prostate, Via Natural or Artificial Opening, Diagnostic (ICD-10-PCS; principal; 2018-10-10 09:30)
DX: C61 Malignant neoplasm of prostate (principal); I42.9 Cardiomyopathy, unspecified; E83.42 Hypomagnesemia; E78.5 Hyperlipidemia, unspecified; F02.80 Dementia in other diseases classified elsewhere, unspecified severity, without behavioral disturbance, psychotic disturbance, mood disturbance, and anxiety; G30.9 Alzheimer's disease, unspecified; E11.69 Type 2 diabetes mellitus with other specified complication; I10 Essential (primary) hypertension; I25.10 Atherosclerotic heart disease of native coronary artery without angina pectoris; K59.09 Other constipation; Z87.891 Personal history of nicotine dependence; Z95.5 Presence of coronary angioplasty implant and graft; I70.0 Atherosclerosis of aorta; K29.70 Gastritis, unspecified, without bleeding; I71.4 Abdominal aortic aneurysm, without rupture; I65.29 Occlusion and stenosis of unspecified carotid artery; K66.9 Disorder of peritoneum, unspecified; G62.9 Polyneuropathy, unspecified

== ENCOUNTER 2018-11-26 08:44 | Day surgery (SDC) | payer MEDICARE ==
[2018-11-26] MEDS ORDERED: Absorbable Gelatin Sponge Size 12-7 ONE (10:04)
[2018-11-26] MEDS ORDERED: Midazolam 2 MG/2 ML VIAL ONE (10:38)
[2018-11-26] MEDS ORDERED: Lidocaine Hydrochloride 5 ML INJ ONE (10:38)
--- NOTE | 2018-11-26 11:00 | CP.SDSHP ---
Same Day Surgery H & P - History Proposed Procedure: CT guided right pelvic mass biopsy Pre-Op Diagnosis: right pelvic mass - Allergies Allergies: Allergies No Known Allergies Allergy (Verified 10/02/18 13:13) - Physical Exam Mental Status: Alert & Oriented x3 - Impression Impression: Pt with prostate cancer and 7 cm right pelvic mass. Plan right pelvic mass biopsy Pt. Evaluated Today:Candidate for Anesthesia & Procedure: Yes (ASA 3 Malampati 3) - Date & Time Date: 11/26/18 Time: 10:00 Short Stay Discharge - Short Stay Discharge Admitting Diagnosis/Reason for Visit: MALIGNANT NEOPLASM OF PROSTATE Disposition: HOME/ ROUTINE
[2018-11-26 11:03] VITALS: BMI 25.8
--- NOTE | 2018-11-26 11:03 | PCM.SURG1 ---
Surgeon's Initial Post Op Note - Surgeon's Notes Surgeon: Hank Alfaro MD Data Clerk: NONE Type of Anesthesia: IV Sedation Pre-Operative Diagnosis: right pelvic mass Operative Findings: 7 cm right pelvic mass. AAA Post-Operative Diagnosis: right pelvic mass Operation Performed: CT guided biosy. Four 18-g core specimen obtained. Specimen/Specimens Removed: 18-G core x 4 Estimated Blood Loss: EBL {In ML}: 0 Blood Products Given: N/A Drains Used: No Drains Post-Op Condition: Good Date of Surgery/Procedure: 11/26/18 Time of Surgery/Procedure: 11:02
--- NOTE | 2018-11-26 13:08 | CT ---
PROCEDURE: < Date of procedure: 11/26/2018 Procedure: 1. CT-guided biopsy of pelvic mass 2. CT guidance for procedure, [address] Radiation: 970.29 MGy-cm Medications: The patient sedated by the anesthesiologist with IV sedation, 1 percent lidocaine HISTORY: Prostate cancer, large right pelvic mass TECHNIQUE: Following informed consent and procedure time-out, the patient was placed supine on the CT table and noncontrast CT scan was performed. The non contrast CT scan confirmed the presence of a 7 centimeter right pelvic mass along the iliacus. A skin localizer was placed on patient's right hip and repeat CT scan performed. The skin was marked, prepped, and draped in the usual sterile fashion. After the patient was sedated by the anesthesiologist and the skin anesthetized with 1% lidocaine, an 18 gauge core biopsy needle was advanced percutaneously under CT guidance towards the mass. Once the needle was confirmed to be within the mass, multiple core biopsy specimens were obtained and sent for routine pathology. The specimen was also sent for flow cytometry. A post biopsy CT scan showed no hematoma. IMPRESSION: CT-guided biopsy core biopsy of a right pelvic mass. Again seen is the abdominal aortic aneurysm which is previously described on CT of the abdomen.
== END 2018-11-26 12:44 | disposition home or self-care (01) ==
LOC: C.SPRAD 08:44
PROVIDERS: ATTEND Radiology Vascular & Interventional Radiology
DX: C78.6 Secondary malignant neoplasm of retroperitoneum and peritoneum (principal); C61 Malignant neoplasm of prostate; I71.4 Abdominal aortic aneurysm, without rupture; E11.9 Type 2 diabetes mellitus without complications; I25.10 Atherosclerotic heart disease of native coronary artery without angina pectoris; I10 Essential (primary) hypertension; Z79.84 Long term (current) use of oral hypoglycemic drugs
CPT/HCPCS: 49180; 77012; 82948; 88305; 88342; J2250; J3010